=== PATIENT | male | born 1965 | race Caucasian/White ===

== ENCOUNTER 2020-03-04 11:00 | Inpatient (IN) | payer OTHER ==
[~2020-03-04] VITALS: Ht 175.3 cm; Wt 88.1 kg
[~2020-03-04 11:00] MED LIST: DOXYCYCL HYC100 MG PO
--- NOTE | 2020-03-04 11:00 | NUR ---
PT ARRIVES VIA EMS IN NO DISTRESS WITH REDNESS TO LLE.
[2020-03-04 12:00] LABS: HEMOGLOBIN 10.9 g/dl (14.0-18.0); MEAN CELL VOLUME 86.2 fL CALC (80.0-100.0); MEAN CORPUSCULAR HGB 31.3 pG CALC (26.0-32.0); MEAN CORPUSCULAR HGB CONC 36.3 g/dL CAL (32.0-36.0); NEUT# 8.75 thou/uL (1.82-7.42); RED BLOOD COUNT 3.48 mill/uL (4.70-6.10); RED CELL DISTRI WIDTH 12.8 % (11.5-15.5)
--- NOTE | 2020-03-04 12:00 | NUR ---
PT UPDATED ON POCC. PT TOLERATING IVF BOLUS AND ABT WELL. PT TAKING PO FLUIS. SKIN PWD
[2020-03-04 12:13] LABS: ALBUMIN 2.8 g/dL (3.2-5.0); ALKALINE PHOSPHATASE 58 u/l (38-126); ANION GAP 15 (6-22 (CALC)); BILIRUBIN, TOTAL 2.7 mg/dL (0.0-1.4); BUN 21 mg/dL (9-20); BUN/CREATININE RATIO 25 (12-20 (CALC)); CARBON DIOXIDE 21 mmol/l (22-30); CHLORIDE 96 mmol/l (95-108); CREATININE 0.8 mg/dL (0.7-1.3); ETHYL ALCOHOL 0 mg/dl (0-30); GFR > 60 ML/MIN (>=60 (CALC)); GFR FOR AFR.AMER. > 60 ML/MIN (>=60 (CALC)); LIPASE 34 u/l (23-300); POTASSIUM 4.2 mmol/l (3.5-5.1); SGOT/AST 29 u/l (17-59); SODIUM 128 mmol/l (137-146); TOTAL PROTEIN 6.5 g/dL (6.3-8.2)
--- NOTE | 2020-03-04 13:00 | NUR ---
OBTAINED 350 CC DARK TEA COLORED URINE. PT UP IN NO DISTRESS.
[2020-03-04 13:41] LABS: URINE BILIRUBIN - DIPSTICK NEGATIVE (NEGATIVE); URINE BLOOD DIPSTICK TRACE-INTACT (NEGATIVE); URINE COLOR YELLOW; URINE GLUCOSE - DIPSTICK NEGATIVE (NEGATIVE); URINE KETONE TRACE mg/dL (NEGATIVE); URINE LEUK ESTERASE NEGATIVE (NEGATIVE); URINE NITRITE - DIPSTICK NEGATIVE (Negative); URINE PH 5.5 (4.5-8.0); URINE PROTEIN - DIPSTICK NEGATIVE (NEG-TRACE); URINE SPECIFIC GRAVITY 1.025
[2020-03-04 13:46] LABS: BARBITURATES NEGATIVE (NEGATIVE); COCAINE NEGATIVE (NEGATIVE); METHADONE NEGATIVE (NEGATIVE); OXCYCODONE NEGATIVE (NEGATIVE); TETRAHYDROCANNABIONOL NEGATIVE (NEGATIVE); TRICYLIC ANTIDEPRESSANTS NEGATIVE (NEGATIVE)
--- NOTE | 2020-03-04 14:47 | NUR ---
REPEAT LACTIC DRAWN. PT IN NO DISTRESS, RESP EVEN AND UNLABORED, VSS. CONTINUES WITH TWO [facility] OFFICERS , OFFICERS MAINTAINING LT ANKLE CUFF TO BED. UPDATED ON ADMIT AND POC
--- NOTE | 2020-03-04 15:57 | NUR ---
PT TOLERATING IVF AND ABT WELL. PT HAS NO COMPLAINTS AT THIS TIME. VSS. UPDATED ON POC, CONTINUES WITH 2 [facility] GUARDS. PT URINATED 150CC CLEAR YELLOW URINE
--- NOTE | 2020-03-04 16:50 | NUR ---
PT UPDATED ON POC IN NO DISTRESS, PT STATES "I AM READY TO GET TO A [facility]". GUARDS AT BEDSIDE. VSS
--- NOTE | 2020-03-04 17:50 | NUR ---
TRANSPORTED TO [facility] VIA WITH MASK ON AND WRAPPED IN BLANKET. PT WITH WRIST AND ANKLE SHACKLES MAINTAINED BY 2 [facility] GUARDS AT SIDE. PT IN NO DISTRESS.
[2020-03-04 17:56] VITALS: BP 145/68
--- NOTE | 2020-03-04 17:56 | NUR ---
PT ARRIVED TO MED/SURG ROOM 283 IN STABLE CONDITION VIA WHEELCHAIR ACCOMPANIED BY LACEY,ELIZABETH AND X2 GUARDS;PT AMBULATED TO BEDSIDE WITH A STEADY GAIT AND LLE SHAKLED TO BED;WT AND VS OBTAINED;PT A&O X3,ORIENTED TO ROOM AND CALL LIGHT SYSTEM;PT REPORTS BLISTERED AREA TO LLE ACCOMPANIED WITH RASH;PT DENIES ANY CURRENT PAIN OR DISCOMFORTS,PAIN SCALE AND REPORTING EDUCATED;RESPIRATIONS EVEN AND UNLABORED ON RA,CLEAR LUNG SOUNDS WITH NON-PRODUCTIVE COUGH NOTED AT TIMES;ABDOMEN SOFT ON PALPATION AND ACTIVE IN ALL4 QUADRANTS,LAST BM 03/04/2020;WEAK PEDAL PULSES;EMS #18G TO LAC FLUSHED AND PATENT,SITE APPEARS HEALTHY;ALLERGY BAND APPLIED;ACCUCHECK OBTAINED RESULTING IN 221;ALL SAFETY PRECAUTIONS IN PLACE WITH BED IN THE LOWEST POSITION AND CALL LIGHT IN REACH;WILL CONTINUE TO MONITOR
--- NOTE | 2020-03-04 19:05 | NUR ---
REPORT RECEIVED FROM ANTHONY BUSTILLO. PT RESTING IN BED, NO S/S OF DISTRESS AT THIS TIME. SAFETY PRECAUTIONS IN PLACE. WILL CONTINUE TO MONITOR.
--- NOTE | 2020-03-04 22:36 | NUR ---
PT RETURNING TO BED FROM THE RESTROOM, GATE STEADY. RESPIRATIONS EVEN AND UNLABORED ON RA. LUNGS SOUND CLEAR DIMINISHED. PEDAL PULSES STRONG. PT DENIES ANY PAIN OR DICOMFORT AT THIS TIME. SAFETY PRECAUTIONS IN PLACE. 1 SIDDHARTHA AT BEDSIDE. WILL CONTINUE TO MONITOR.
--- NOTE | 2020-03-05 00:35 | NUR ---
PT RESTING IN BED. RESPIRATIONS EVEN AND UNLABORED. TRINITYDS AT BEDSIDE. EDUCATED GAURDS ON THE IMPORTANCE OF WEARING THEIR N95 MASK WHILE IN THE ROOM WITH THE PT. SAFETY PRECAUTIONS IN PLACE. WILL CONTIUNE TO MONITOR.
[2020-03-05 01:21] VITALS: BP 143/65
--- NOTE | 2020-03-05 03:53 | NUR ---
PT RESTING IN BED, NO S/S OF DISTRESS AT THIS TIME. 2 GAURDS AT BEDSIDE. SAFETY PRECAUTIONSIN PLACE. WILL CONTINUE TO MONITOR.
[2020-03-05 05:39] VITALS: BP 146/71
[2020-03-05 06:14] LABS: HEMATOCRIT 27.2 % (39.0-50.0); HEMOGLOBIN 9.7 g/dl (14.0-18.0); MEAN CELL VOLUME 86.9 fL CALC (80.0-100.0); MEAN CORPUSCULAR HGB CONC 35.7 g/dL CAL (32.0-36.0); RED BLOOD COUNT 3.13 mill/uL (4.70-6.10); RED CELL DISTRI WIDTH 12.8 % (11.5-15.5)
[2020-03-05 06:38] LABS: ANION GAP 9 (6-22 (CALC)); BUN 14 mg/dL (9-20); BUN/CREATININE RATIO 26 (12-20 (CALC)); CARBON DIOXIDE 22 mmol/l (22-30); CHLORIDE 105 mmol/l (95-108); CREATININE 0.6 mg/dL (0.7-1.3); GFR > 60 ML/MIN (>=60 (CALC)); GFR FOR AFR.AMER. > 60 ML/MIN (>=60 (CALC)); POTASSIUM 3.8 mmol/l (3.5-5.1); SODIUM 132 mmol/l (137-146)
--- NOTE | 2020-03-05 07:10 | NUR ---
REPORT RECEIVED FROM ELIZABETH MAYFIELD. PT RESTING IN SEMI FOWLERS WITH EYES CLOSED; AWAKENS TO VERBAL STIMULI; ALERT AND ORIENTED. DENIES PAIN. RESPIRATIONS EVEN AND UNLABORED ON ROOM AIR. RLE SHACKLED TO BED; 2 GUARDS AT BEDSIDE. LLE NOTED TO BE MILDLY RED WITH BLISTER TO BOTTOM OF FOOT. PT ON AIRBORNE/CONTACT PRECAUTIONS PENDING COVID TEST RESULTS. PLAN OF CARE REVIEWED. PT ENCOURAGED TO VERBALIZE CONCERNS. STATES UNDERSTANDING. SAFETY MEASURES IN PLACE. CALL LIGHT WITHIN REACH.
[2020-03-05 08:00] VITALS: BP 143/68
--- NOTE | 2020-03-05 09:09 | NUR ---
S: NANI GENTILE is a 54 M who presents with decubitis ulcer of left foot and cellulitis of left lower extremity. He has a history of diabetes. All medications in patient's chart were reviewed. O: VS: BP 143/68, P 78, RR 18,T 98.4 W 88.139 kg, HT 69 in, Scr=0.6, CrCl= 158 ml/min A: Blood culture is pending. P: Patient is on Zosyn 3.375 g IV Q6H. Vancomycin ordered for pharmacy to dose. Start Vancomycin 1g IV Q8H. Vancomycin trough is drawn before the 4th dose on 03/05/20 @1330. Vancomycin goal trough is between 10-15 mcg/ml. Pharmacy will follow and or advise on antibiotics use as needed.
[2020-03-05] MEDS ORDERED: METFORMIN HCL1000 MG PO (10:15)
[2020-03-05] MEDS ORDERED: LEVOTHYROXIN50 MC1 PO (10:16)
[2020-03-05] MEDS ORDERED: LASIX 40 MG TAB40 MG PO ×2 (10:16→10:36)
[2020-03-05] MEDS ORDERED: ATENOLOL XX (10:16)
[2020-03-05] MEDS ORDERED: LISINOPRIL20 MG PO (10:36)
[2020-03-05] MEDS ORDERED: K-TABS10 MEQ PO (10:50)
[2020-03-05] MEDS ORDERED: ATENOLOL25 MG PO (10:51)
[2020-03-05] MEDS ORDERED: LEVOTHYROXIN25 MC1 PO (10:51)
--- NOTE | 2020-03-05 12:34 | NUR ---
MED REC RECEIVED FROM [facility]; MED REC UPDATED. PT REQUESTING SHOWER.
--- NOTE | 2020-03-05 13:36 | NUR ---
PRASHANT TROUGH OBTAINED AND SENT TO LAB. PT C/O INCREASED PAIN AND REDNESS TO LLE.
--- NOTE | 2020-03-05 14:25 | NUR ---
PT TRANSPORTED TO ULTRASOUND FOR LLE VIA WHEELCHAIR WITH ONE GUARD AND RLE SHACKLED TO CHAIR. MASK PROVIDED DUE TO ISOLATION PRECAUTIONS.
--- NOTE | 2020-03-05 14:50 | NUR ---
PT BACK TO ROOM. LABS DRAWN AND SENT TO LAB.
--- NOTE | 2020-03-05 15:41 | NUR ---
VANCO TROUGH 9; DOSE INCREASED. VANCO 1250MG INFUSING AT THIS TIME. NEW IV SITE TO LFA APPEARS HEALTHY AND FLUSHES; EMS SITE D/C'D.
[2020-03-05 16:00] VITALS: BP 152/75
--- NOTE | 2020-03-05 16:11 | NUR ---
S: NANI GENTILE is a 54 M who presents with cellulitis. He has a history of diabetes, hypertension, and thyroid issues. All medications in patient's chart were reviewed. O: VS: BP 152/75 mmHg, P 70 bpm, RR 18 breaths/min, T 98 F W 88.139 kg, HT 69 in, Scr 0.6 mg/dl A: Blood culture is pending. P: First trough came back at 9 mcg/ml. Increase vancomycin dose to 1250mg IV Q8H @ 0030, 0800, and 1600. Vancomycin trough is drawn before the 4th dose on 03/06/20 @ 1530. Vancomycin goal trough is between 10-15 mcg/ml. Pharmacy will follow and or advise on antibiotics use as needed.
--- NOTE | 2020-03-05 18:04 | NUR ---
FISH ALLERGY ADDED TO ALLERGY LIST; NEW DINNER TRAY PROVIDED. 2 GUARDS REMAIN AT BEDSIDE.
--- NOTE | 2020-03-05 19:04 | NUR ---
COVID-19 RESULTS NEGATIVE PER LAB
--- NOTE | 2020-03-05 20:17 | NUR ---
INFORMED OF COVID RESULTS
--- NOTE | 2020-03-05 21:00 | NUR ---
PHYSICAL ASSEMENT COMPLETE. VS TAKEN BY DRILL PRESS HAND ASSESSED. PLAN OF CARE REVIEWED W/ PT, DENIES QUESTIONS, VERBALIZES UNDERSTANDING. DENIES NEEDS AT THIS TIME. CALL RAMIREZ WITHIN REACH, AGREES TO CALL PRN. BED LOCKED IN LOW POSITION W/ BEDRAILS UP X2, ITEMS WITHIN REACH. PT FROM [facility], COsX2 PRESENT AT BEDSIDE, PT IS SHACKLED TO BED.
--- NOTE | 2020-03-06 00:51 | NUR ---
PT APPEARS TO BE SLEEPING COMFORTABLY. NO APPARENT DISTRESS. RESPIRATIONS REGULAR AND UNLABORED.CALL RAMIREZ REMAINS WITHIN REACH. BED REMAINS LOCKED IN LOW POSITION W/ BEDRAILS UP X2, ITEMS REMAIN WITHIN REACH.
[2020-03-06 04:22] VITALS: BP 151/80
[2020-03-06 04:40] LABS: HEMATOCRIT 27.2 % (39.0-50.0); HEMOGLOBIN 9.5 g/dl (14.0-18.0); IMMATURE GRANULOCYTES 0.2 % (0.0-5.0); MEAN CELL VOLUME 86.6 fL CALC (80.0-100.0); MEAN CORPUSCULAR HGB 30.3 pG CALC (26.0-32.0); MEAN CORPUSCULAR HGB CONC 34.9 g/dL CAL (32.0-36.0); NEUT# 2.85 thou/uL (1.82-7.42); RED BLOOD COUNT 3.14 mill/uL (4.70-6.10); RED CELL DISTRI WIDTH 12.6 % (11.5-15.5)
[2020-03-06 05:05] LABS: ALKALINE PHOSPHATASE 48 u/l (38-126); ANION GAP 8 (6-22 (CALC)); BUN 8 mg/dL (9-20); BUN/CREATININE RATIO 15 (12-20 (CALC)); CARBON DIOXIDE 23 mmol/l (22-30); CHLORIDE 105 mmol/l (95-108); CREATININE 0.5 mg/dL (0.7-1.3); GFR > 60 ML/MIN (>=60 (CALC)); GFR FOR AFR.AMER. > 60 ML/MIN (>=60 (CALC)); POTASSIUM 3.3 mmol/l (3.5-5.1); SGOT/AST 38 u/l (17-59); SODIUM 134 mmol/l (137-146); TOTAL PROTEIN 5.5 g/dL (6.3-8.2)
[2020-03-06 05:08] LABS: ALBUMIN 2.2 g/dL (3.2-5.0); BILIRUBIN, TOTAL 1.5 mg/dL (0.0-1.4)
--- NOTE | 2020-03-06 05:39 | NUR ---
VS TAKEN BY ENGINEERING MECHANIC @ 4375 ASSESSED. PHYSICAL ASSESMENT REMAINS UNCHANGED. PT RESTING IN BED, APPEARS COMFORTABLE. DENIES PAIN, DENIES NEEDS @ THIS TIME. BED REMAINS LOCKED IN LOW POSITION W/ BEDRAILS UP X2, ITEMS REMAIN WITHIN REACH. CALL RAMIREZ REMAINS WITHIN REACH, AGREES TO CALL PRN.
--- NOTE | 2020-03-06 07:20 | NUR ---
CHANGE OF SHIFT REPORT RECEIVED FROM ELIZABETH TSAI. PT IN SEMI-BRITTON POSITION. CALL LIGHT WITHIN EASY REACH. PT IS ABLE TO MAKE NEEDS KNOWN.
--- NOTE | 2020-03-06 12:00 | NUR ---
PT RESTING COMFORTABLY. PT DENIES ANY NEW CONCERNS. PT ADVISED TO NOTIFY TEST DEPARTMENT HELPER WHEN HE HAS A STOOL. SPECIMEN HAT PLACED ON TOILET. CALL LIGHT WITHIN EASY REACH
[2020-03-06 13:20] LABS: ACT PARTIAL THROMBO TIME 36.9 SECONDS (20.0-32.5); INTERNATIONAL NORMALIZED RATIO 1.2 RATIO (0.7-1.3); PROTHROMBIN TIME 12.2 SECONDS (9.0-12.5)
[2020-03-06 15:45] VITALS: BP 147/72
--- NOTE | 2020-03-06 16:00 | NUR ---
PT IN ROOM. PT HAD BM X 2 TODAY. EDUCATION PROVIDED ON ANTIBIOTIC THERAPY AND VANCO TROUGH. EDUCATION PROVIDED ON SOLUMEDROL. PT VERBALIZED UNDERSTANDING. FERMENTER OPERATOR WILL CONTINUE TO MONITOR
[2020-03-06 19:30] VITALS: BP 149/72
--- NOTE | 2020-03-06 20:30 | NUR ---
PHYSICAL ASSEMENT COMPLETE. VS TAKEN BY MELE @ 1910 ASSESSED. PLAN OF CARE REVIEWED W/ PT, DENIES QUESTIONS, VERBALIZES UNDERSTANDING. DENIES NEEDS AT THIS TIME. CALL RAMIREZ WITHIN REACH, AGREES TO CALL PRN. BED LOCKED IN LOW POSITION W/ BEDRAILS UP X2, ITEMS WITHIN REACH. PT IS INMATE @ [facility], SHACKLED TO BED AND COsX2 PRESENT AT BEDSIDE.
--- NOTE | 2020-03-06 21:15 | NUR ---
FINGER STICK GLUCOSE CHECK CRITICALLY HIGH, SERUM RECHECK ORDERED. RESULTS 469mg/dl. DR. CARTER MADE AWARE. NEW ORDERS RECEIVED. SEE JAN.
--- NOTE | 2020-03-07 00:45 | NUR ---
REPEAT GLUCOSE @ 2355 IS 446mg/dl. DR CARTER MADE AWARE @ 0045 AND ORDERS RECEIVED.
[2020-03-07 03:20] VITALS: BP 139/75
--- NOTE | 2020-03-07 04:33 | NUR ---
VS TAKEN BY SUPERVISOR PHOTOENGRAVING @ 0320 ASSESSED. PHYSICAL ASSESMENT REMAINS UNCHANGED. PT RESTING IN BED, APPEARS COMFORTABLE. DENIES PAIN, DENIES NEEDS @ THIS TIME. BED REMAINS LOCKED IN LOW POSITION W/ BEDRAILS UP X2, ITEMS REMAIN WITHIN REACH. CALL RAMIREZ REMAINS WITHIN REACH, AGREES TO CALL PRN.
[2020-03-07 04:38] LABS: HEMATOCRIT 28.1 % (39.0-50.0); HEMOGLOBIN 10.1 g/dl (14.0-18.0); MEAN CELL VOLUME 85.4 fL CALC (80.0-100.0); MEAN CORPUSCULAR HGB 30.7 pG CALC (26.0-32.0); MEAN CORPUSCULAR HGB CONC 35.9 g/dL CAL (32.0-36.0); RED BLOOD COUNT 3.29 mill/uL (4.70-6.10); RED CELL DISTRI WIDTH 12.4 % (11.5-15.5)
[2020-03-07 04:51] LABS: ALBUMIN 2.4 g/dL (3.2-5.0); ALKALINE PHOSPHATASE 71 u/l (38-126); ANION GAP 10 (6-22 (CALC)); BILIRUBIN, TOTAL 1.1 mg/dL (0.0-1.4); BUN 9 mg/dL (9-20); BUN/CREATININE RATIO 17 (12-20 (CALC)); CARBON DIOXIDE 23 mmol/l (22-30); CHLORIDE 106 mmol/l (95-108); CREATININE 0.5 mg/dL (0.7-1.3); GFR > 60 ML/MIN (>=60 (CALC)); GFR FOR AFR.AMER. > 60 ML/MIN (>=60 (CALC)); POTASSIUM 3.7 mmol/l (3.5-5.1); SGOT/AST 33 u/l (17-59); SODIUM 135 mmol/l (137-146); TOTAL PROTEIN 5.8 g/dL (6.3-8.2)
--- NOTE | 2020-03-07 07:15 | NUR ---
CHANGE OF SHIFT REPORT RECEIVED FROM ELIZABETH THOMAS. PT IS IN THE SHOWER. PT DENIES ANY CONCERNS AT THIS TIME. PAPER GUILLOTINE OPERATOR WILL CONTINUE TO MONITOR
--- NOTE | 2020-03-07 12:00 | NUR ---
PT STABLE. NO S/S OF DISTRESS. ANTIBIOTICS ADMINISTERED ORDERED. INSTRUCTOR BALLROOM DANCING WILL CONTINUE TO MONITOR
--- NOTE | 2020-03-07 12:07 | NUR ---
VANCOMYCIN ORDERED FOR PHARMACY TO DOSE. PT DOSE WAS CHANGED TO 1250MG IV Q8H ON 03/05. FIRST TROUGH DRAWN 30 MIN PRIOR TO 4TH DOSE ON 03/06 @ 1530. TROUGH = 13 MCG/ML. GOAL TROUGH = 10-15 MCG/ML. CONTINUE AT CURRENT DOSE OF 1250MG IV Q8H AND DRAW NEXT TROUGH ON 03/07 @ 1530.
[2020-03-07 15:30] VITALS: BP 132/72
--- NOTE | 2020-03-07 15:32 | NUR ---
PT STABLE. NO S/S OF DISTRESS. VANCO TROUGH PENDING. CALL LIGHT WITHIN EASYS REACH, BED IN LOWEST POSITION.
[2020-03-07 18:50] VITALS: BP 141/71
--- NOTE | 2020-03-07 19:00 | NUR ---
REPORT RECEIVED BY Rudi GAMBINO RN, CARE OF PT TAKEN OVER AT THIS TIME.
--- NOTE | 2020-03-07 20:15 | NUR ---
PHYSICAL ASSEMENT COMPLETE. VS TAKEN BY MELE @ 4679 ASSESSED. PLAN OF CARE REVIEWED W/ PT, DENIES QUESTIONS, VERBALIZES UNDERSTANDING. DENIES NEEDS AT THIS TIME. CALL RAMIREZ WITHIN REACH, AGREES TO CALL PRN. BED LOCKED IN LOW POSITION W/ BEDRAILS UP X2, ITEMS WITHIN REACH.
[2020-03-08 03:55] VITALS: BP 161/76
--- NOTE | 2020-03-08 05:18 | NUR ---
VS TAKEN BY GRADER GREEN MEAT @ 0333 ASSESSED. PHYSICAL ASSESMENT REMAINS UNCHANGED. PT RESTING IN BED, APPEARS COMFORTABLE. DENIES PAIN, DENIES NEEDS @ THIS TIME. BED REMAINS LOCKED IN LOW POSITION W/ BEDRAILS UP X2, ITEMS REMAIN WITHIN REACH. CALL RAMIREZ REMAINS WITHIN REACH, AGREES TO CALL PRN.
[2020-03-08 05:19] LABS: HEMATOCRIT 27.7 % (39.0-50.0); HEMOGLOBIN 9.8 g/dl (14.0-18.0); IMMATURE GRANULOCYTES 0.5 % (0.0-5.0); MEAN CORPUSCULAR HGB 30.4 pG CALC (26.0-32.0); MEAN CORPUSCULAR HGB CONC 35.4 g/dL CAL (32.0-36.0); NEUT# 7.46 thou/uL (1.82-7.42); RED BLOOD COUNT 3.22 mill/uL (4.70-6.10); RED CELL DISTRI WIDTH 12.9 % (11.5-15.5)
[2020-03-08 05:29] LABS: ANION GAP 9 (6-22 (CALC)); BUN 11 mg/dL (9-20); BUN/CREATININE RATIO 21 (12-20 (CALC)); CARBON DIOXIDE 24 mmol/l (22-30); CHLORIDE 107 mmol/l (95-108); CREATININE 0.5 mg/dL (0.7-1.3); GFR > 60 ML/MIN (>=60 (CALC)); GFR FOR AFR.AMER. > 60 ML/MIN (>=60 (CALC)); POTASSIUM 3.9 mmol/l (3.5-5.1); SODIUM 135 mmol/l (137-146)
[2020-03-08 08:00] VITALS: BP 160/73
[2020-03-08 08:57] VITALS: BP 160/73
--- NOTE | 2020-03-08 09:00 | NUR ---
PT IS ALERT AND ORIENTED X 3. LUNGS CLEAR, RA. LEFT LEG WITH 2+ EDEMA, SKIN WITH WHAT APPEARS TO BE RASH. BAND AID APPLIED TO LEFT FOOT WHERE BLISTER SEEN, MINIMAL DRAINAGE. ALPA HOSE APPLIED PER SWELLING. PT WITH GUARDS X 2 AT BEDSIDE.
[2020-03-08] MEDS ORDERED: DOXYCYCL HYC100 MG PO (10:30)
[2020-03-08] MEDS ORDERED: JANUVIA100 MG PO (10:30)
[2020-03-08] MEDS ORDERED: PREDNISONE20 MG PO (10:30)
--- NOTE | 2020-03-08 11:30 | NUR ---
PT HAS BEEN DISCHARGED BACK TO [facility]. PT VERBALIZED UNDERSTANDING OF DC INSTRUCTIONS, AWARE OF NEW RXs AND PLAN OF CARE. PT AMBULATORY TO LOBBY, REFUSED WHEELCHAIR, GAIT SEEN STEADY.
--- NOTE | 2020-03-08 17:18 | NUR ---
Vancomycin ordered for pharmacy to dose. PT is a 54 yrs old M who presented with cellulitis of left lower extremity. Pt was started on Vancomycin 1,250 mg IV Q8H with goal trough of 10-15 mcg/ml. Trough on 03/07/20 at 1530: 17mcg/mL. Wt: 90kg, Ht: 72 in, Scr: 0.6, CrCl: >120mL/min Change Vancomycin dose to 1,000 mg IV Q8H on 03/08/20 at 0800. Draw trough 30 minutes prior to 4th dose on 03/09/20 at 0730. Pharmacy will continue to follow.
== END 2020-03-08 11:45 | DRG 602 ==
LOC: ED 11:00 → ED-I 14:23 → ED 14:52 → ED-I 14:53 → MS2 14:53
PROVIDERS: Nurse Practitioner Family; ADMIT Internal Medicine; ATTEND Internal Medicine
DX: L03.116 Cellulitis of left lower limb (principal); M31.1 Thrombotic microangiopathy; E87.1 Hypo-osmolality and hyponatremia; L89.890 Pressure ulcer of other site, unstageable; E11.9 Type 2 diabetes mellitus without complications; I10 Essential (primary) hypertension; E03.9 Hypothyroidism, unspecified; E87.6 Hypokalemia; Z79.84 Long term (current) use of oral hypoglycemic drugs; Z20.828 Contact with and (suspected) exposure to other viral communicable diseases
CPT/HCPCS: J3370

== ENCOUNTER 2020-07-23 09:18 | Inpatient (IN) | payer OTHER ==
[~2020-07-23] VITALS: Ht 175.3 cm; Wt 95.8 kg
[~2020-07-23 09:18] MED LIST changes: +ATENOLOL XX; +ATENOLOL25 MG PO; +JANUVIA100 MG PO; +K-TABS10 MEQ PO; +LASIX 40 MG TAB40 MG PO; +LEVOTHYROXIN25 MC1 PO; +LEVOTHYROXIN50 MC1 PO; +LISINOPRIL20 MG PO; +METFORMIN HCL1000 MG PO; +PREDNISONE20 MG PO
--- NOTE | 2020-07-23 09:20 | NUR ---
PATIENT TO ROOM FOR BEDSIDE TRIAGE.
--- NOTE | 2020-07-23 09:20 | NUR ---
PATIENT TO ROOM WITH [facility] GUARDS AND PHYSICIAN NOTIFIED OF PATIENT STATUS
--- NOTE | 2020-07-23 09:57 | NUR ---
PT PRESENTS WITH A 4CM X 3 CM ELEVATED ULCER UNDER THE UPPER PART OF LEFT FOOT. SOME EDEMA AND REDNESS IS DETECTED. ON THE DORSAL PART OF FOOT THERE IS A RED STREAK. PT STATES EXPERIANCING FEVER LAST NIGHT. AFIBRILE NOW AND STATES NOT TAKING ANY MEDS FOR THE FEVER. WOUND HOT TO THE TOUCH. AOX4. STATES FEELING LIGHT HEADED AND DIZZY YESTERDAY WHICH HAS THEN RESOLVED. WILL CONTINUE TO MONITOR. PAIN 07/05
[2020-07-23 10:05] LABS: HEMATOCRIT 30.3 % (39.0-50.0); HEMOGLOBIN 10.3 g/dl (14.0-18.0); IMMATURE GRANULOCYTES 0.4 % (0.0-5.0); MEAN CELL VOLUME 90.2 fL CALC (80.0-100.0); MEAN CORPUSCULAR HGB 30.7 pG CALC (26.0-32.0); NEUT# 7.41 thou/uL (1.82-7.42); RED BLOOD COUNT 3.36 mill/uL (4.70-6.10); RED CELL DISTRI WIDTH 14.2 % (11.5-15.5)
[2020-07-23 10:20] LABS: ALKALINE PHOSPHATASE 70 u/l (38-126); ANION GAP 13 (6-22 (CALC)); BUN 11 mg/dL (9-20); BUN/CREATININE RATIO 17 (12-20 (CALC)); CARBON DIOXIDE 23 mmol/l (22-30); CHLORIDE 105 mmol/l (95-108); CREATININE 0.7 mg/dL (0.7-1.3); GFR > 60 ML/MIN (>=60 (CALC)); GFR FOR AFR.AMER. > 60 ML/MIN (>=60 (CALC)); SGOT/AST 30 u/l (17-59); SODIUM 136 mmol/l (137-146); TOTAL PROTEIN 6.6 g/dL (6.3-8.2)
[2020-07-23 10:22] LABS: ALBUMIN 3.2 g/dL (3.2-5.0); BILIRUBIN, TOTAL 3.2 mg/dL (0.0-1.4)
--- NOTE | 2020-07-23 10:30 | NUR ---
PT RESTING ON STRETCHER WITH ANTIBIOTICS AND FLUIDS FLOWING INTO PATENT IV. DENIES ANY NEEDS
--- NOTE | 2020-07-23 11:30 | NUR ---
PT RESTING AND ANOTHER LITER OF FLUID IS HANGED. ANTIBIOTICS CONTINUE TO BE INFUSING INTO IV. DENIES ANY NEEDS AT THIS TIME. OFFICERS AT BEDSIDE
--- NOTE | 2020-07-23 13:13 | NUR ---
CALLED BECAUSE OF INCREASED LACTIC LEVEL TO SEEK TREATMENT BEFORE HAND OFF REPORT VERBAL ORDERS RECIEVED
--- NOTE | 2020-07-23 13:17 | NUR ---
ATTEMPTED TO GIVE REPORT AND IT WAS SAID THAT NURSE IS BUSY AND WILL CALL BACK WHEN AVAILIABLE
--- NOTE | 2020-07-23 13:30 | NUR ---
GAVE REPORT TO YVETTE
--- NOTE | 2020-07-23 13:55 | NUR ---
TRANSPORTED PT TO [facility] SURG STABLE AND IN NO DISTRESS WITH ESCORT OF TWO OFFICERS Admission Note Report Given to: YVETTE Transported by: X Wheelchair Stretcher Transported with: X Nurse Transporter X Patent IV O2 Management And Budget Analyst Location: ICU X MS2
--- NOTE | 2020-07-23 14:06 | NUR ---
PT ASSESSMENT IS COMPLETED: IV SITE IS FREE FROM REDNESS OR EDEMA. HR IS REG,PULSES ARE STRONG X4, ABD IS SOFT WITH ACTIVE BS. BREATH SOUNDS ARE CLEAR,BILATERALLY., PT HAS A LARGE ULCER ON THE BOTTOM OF LEFT FOOT. NO OOZING NOTED. 2 GUARDS AT BEDSIDE.
[2020-07-23 14:14] VITALS: BP 124/61
[2020-07-23 14:33] LABS: URINE BILIRUBIN - DIPSTICK NEGATIVE (NEGATIVE); URINE BLOOD DIPSTICK NEGATIVE (NEGATIVE); URINE COLOR YELLOW; URINE GLUCOSE - DIPSTICK NEGATIVE (NEGATIVE); URINE KETONE NEGATIVE (NEGATIVE); URINE LEUK ESTERASE NEGATIVE (NEGATIVE); URINE NITRITE - DIPSTICK NEGATIVE (Negative); URINE PH 5.5 (4.5-8.0); URINE PROTEIN - DIPSTICK NEGATIVE (NEG-TRACE); URINE SPECIFIC GRAVITY 1.015
--- NOTE | 2020-07-23 15:30 | NUR ---
CALLED RADHA JAMES IN OR RE: COVID RESULT POSITIVE.
--- NOTE | 2020-07-23 15:53 | NUR ---
S: NANI GENTILE is a 55 M who presents with Cellulitis. He has a history of diabetes, hypertesnion, and thyroid problems. All medications in patient's chart were reviewed. O: VS: BP 124/61 mmHg, P 102 bpm, RR 20 breaths/minute,T 97.5 F W 78.471 kg, HT 175.26 cm, Scr= 0.7 mg/dL, CrCl= 129 ml/min A: Blood culture is pending. P: Patient is on Cefazolin 1g IV Q8H. Vancomycin ordered for pharmacy to dose. Start Vancomycin 1250 mg IV Q12H. Vancomycin trough is drawn before the 4th dose on 07/25/2020 0830. Vancomycin goal trough is between 10-15 mcg/ml. Pharmacy will follow and or advise on antibiotics use as needed.
--- NOTE | 2020-07-23 15:57 | NUR ---
PLACED A CALL TO DR BERMUDEZ RE: COVID RESULT. POSITIVE
--- NOTE | 2020-07-23 15:59 | NUR ---
CALLED [facility], THEY WILL FAX US PTS MED LIST
--- NOTE | 2020-07-23 17:00 | NUR ---
PT IS RELAXING IN BED 2 GUARDS PRESENT AT BEDSIDE.
--- NOTE | 2020-07-23 17:30 | NUR ---
CONSENT SIGNED FOR THE I&D TOMORROW/.
[2020-07-23 19:10] VITALS: BP 165/72
--- NOTE | 2020-07-23 20:15 | NUR ---
PHYSICAL ASSESMENT COMPLETE. PT RESTING IN BED. SHACKLE TO RLE. 2 GUARDS IN ROOM WITH PATIENT. SCHEDULED MEDICATION ADMINISTERED, PRN TYLENOL ADMINISTERED FOR LOW GRADE TEMP, NS 500ML BOLUS INITIATED, IVF RATE INCREASED TO 125ML/H. SEE E-MAR. PLAN OF CARE REVIEWED, PT VERBALIZES UNDERSTANDING, DENIES QUESTIONS. DENIES FURTHER NEEDS AT THIS TIME. CALL RAMIREZ WITHIN REACH, AGREES TO CALL PRN.
--- NOTE | 2020-07-23 20:45 | NUR ---
FINGERSTICK GLUCOSE 162, DIABETIC HS SNACK PROVIDED.
[2020-07-24] VITALS (11 sets, daily range): BP systolic 107–158; BP diastolic 57–77
--- NOTE | 2020-07-24 00:46 | NUR ---
PT SLEEPING, APPEARS COMFORTABLE AND IN NO DISTRESS, RESPIRATIONS REGULAR AND UNLABORED, CALL RAMIREZ REMAON WITHIN REACH.
--- NOTE | 2020-07-24 01:02 | NUR ---
LACTIC ACID WNL
--- NOTE | 2020-07-24 04:18 | NUR ---
ALLERGIES CONFIRMED AND ALLERGY BAND PLACED, PT SET UP TO BATHE AND NEW GOWN PROVIDED. ASSISTED BY Opal WATERMAN CNA. GUARDS X2 REMAIN AT BEDSIDE.
--- NOTE | 2020-07-24 04:27 | NUR ---
SOIL FIELD TECHNICIAN IN ROOM DRAWING AM LABS
[2020-07-24 04:45] LABS: HEMATOCRIT 28.4 % (39.0-50.0); HEMOGLOBIN 9.8 g/dl (14.0-18.0); IMMATURE GRANULOCYTES 0.3 % (0.0-5.0); MEAN CELL VOLUME 91.6 fL CALC (80.0-100.0); MEAN CORPUSCULAR HGB 31.6 pG CALC (26.0-32.0); MEAN CORPUSCULAR HGB CONC 34.5 g/dL CAL (32.0-36.0); NEUT# 7.4 thou/uL (1.82-7.42); RED BLOOD COUNT 3.1 mill/uL (4.70-6.10); RED CELL DISTRI WIDTH 14.6 % (11.5-15.5)
[2020-07-24 05:06] LABS: ALBUMIN 2.6 g/dL (3.2-5.0); ALKALINE PHOSPHATASE 64 u/l (38-126); ANION GAP 9 (6-22 (CALC)); BUN 7 mg/dL (9-20); BUN/CREATININE RATIO 14 (12-20 (CALC)); CARBON DIOXIDE 22 mmol/l (22-30); CHLORIDE 111 mmol/l (95-108); CREATININE 0.5 mg/dL (0.7-1.3); GFR > 60 ML/MIN (>=60 (CALC)); GFR FOR AFR.AMER. > 60 ML/MIN (>=60 (CALC)); POTASSIUM 3.8 mmol/l (3.5-5.1); SGOT/AST 25 u/l (17-59); SODIUM 138 mmol/l (137-146); TOTAL PROTEIN 5.8 g/dL (6.3-8.2)
[2020-07-24 05:07] LABS: BILIRUBIN, TOTAL 1.9 mg/dL (0.0-1.4)
[2020-07-24] MEDS ORDERED: NOVOLIN N100 UNIT/1 SC (07:21)
[2020-07-24] MEDS ORDERED: NOVOLOG100 UNIT/M SC (07:22)
[2020-07-24] MEDS ORDERED: ATENOLOL25 MG PO (07:23)
[2020-07-24] MEDS ORDERED: GLIPIZIDE10 MG PO (07:24)
[2020-07-24] MEDS ORDERED: METFORMIN HCL1000 MG PO (07:24)
[2020-07-24] MEDS ORDERED: LASIX40 MG PO (07:24)
[2020-07-24] MEDS ORDERED: LISINOPRIL20 MG PO (07:25)
--- NOTE | 2020-07-24 07:40 | NUR ---
ASSESSMENT IS COMPLETED: IV SITE IS FREE FROM REDNESS OR EDEMA. HR IS REG,PULSES ARE STRONG X4, ABD IS SOFT WITH ACTIVE BS. BREATH SOUNDS ARE CLEAR, BILATERALLY, NO C/O SOB. PT HAD A BLANKET ON HIS FACE WHEN CHECKING TEMP. LEFT FOOT HAS SOME SWELLING NOTED. CONTINUE TO OSBERVE AND MONITOR.
--- NOTE | 2020-07-24 08:00 | NUR ---
PT TAKEN TO OR VIA STRETCHER ACCOMPANIED BY STAFF, IV SITE IS FREE FROM REDNESS OR EDEMA. 2 GUARDS PRESENT IN THE ROOM.
--- NOTE | 2020-07-24 09:25 | NUR ---
PT RETURNED FROM FROM OR. VIA STRETCHER ACCOMPANIED BY STAFF. AND 2 GUARDS PRESENT. IV SITE REMAINS INTACT. CONTINUE TO OSBERVE AND MONITOR,
--- NOTE | 2020-07-24 12:00 | NUR ---
PT IS RELAXING IN BED 2 GUARDS AT BEDSIDE. NO DISTRESS NOTED IV SITE IS FREE FROM REDNESS OR EDEMA.
--- NOTE | 2020-07-24 16:30 | NUR ---
PT IS RELAXING IN BED WITH NO DISTRESS NOTED. IV SITE IS FREE FROM REDNESS OR EDEMA. 2 GUARDS PRESENT INT HE ROOM.
--- NOTE | 2020-07-24 19:00 | NUR ---
REPORT RECEIVED FROM Alecia GRANT LPN, CARE OF PT ASSUMED AT THIS TIME.
--- NOTE | 2020-07-24 20:45 | NUR ---
PHYSICAL ASSESMENT COMPLETE. PT RESTING IN BED. RESPIRATIONS REGULAR AND UNLABORED. NO APPARENT DISTRESS. RLE SHACKLED TO BED. X2 CORRECTIONAL OFFICERS AT BEDSIDE. POST-OP DRESSING TO LLE CLEAN, DRY, INTACT. C/M/T/S WNL. SEE E-MAR FOR ADMINISTRATION OF SCHEDULED AND PRN MEDICATION(S). PLAN OF CARE REVIEWED, PT VERBALIZES UNDERSTANDING AND DENIES QUESTIONS. PT ABLE TO MAKE NEEDS KNOWN, DENIES NEEDS AT THIS TIME. CALL ASHLEY KENNY, AGREES TO CALL PRN.
--- NOTE | 2020-07-24 23:25 | NUR ---
DRESSING TO LLE SURGICAL SITE CHANGED AT THIS TIME PRESCRIBED BY DR. BERMUDEZ. PREVIOUS DRESSING REMOVED, MINIMAL SANGUINOUS DRAINAGE NOTED TO REMOVED DRESSING. NO ACTIVE DRAINAGE TO SURGICAL WOUND. WOUBD BED MOIST. FREE FROM SIGN OF INFECTION. FLUFFED, NORMAL SALINE MOISTENED, 4X4 GAUZE GENTLY PACKED INTO WOUND. STACK OF 4X4 AND ABD PADS SECURED OVER TOP WITH KORIN WRAP AROUBD FOOT AND ANKLE.
--- NOTE | 2020-07-25 00:40 | NUR ---
PT LAYING IN BED, APPEARS TO BE SLEEPING COMFORTABLY, NO APPARENT DISTRESS, RESPIRATIONS REGULAR AND UNLABORED. CALL RAMIREZ REMAINS WITHIN REACH.
[2020-07-25 04:48] VITALS: BP 134/68
[2020-07-25 05:54] LABS: HEMATOCRIT 22.9 % (39.0-50.0); IMMATURE GRANULOCYTES 0.3 % (0.0-5.0); MEAN CELL VOLUME 93.1 fL CALC (80.0-100.0); MEAN CORPUSCULAR HGB 31.7 pG CALC (26.0-32.0); MEAN CORPUSCULAR HGB CONC 34.1 g/dL CAL (32.0-36.0); NEUT# 2.7 thou/uL (1.82-7.42); RED BLOOD COUNT 2.46 mill/uL (4.70-6.10); RED CELL DISTRI WIDTH 14.6 % (11.5-15.5)
[2020-07-25 06:21] LABS: ANION GAP 9 (6-22 (CALC)); BUN 14 mg/dL (9-20); BUN/CREATININE RATIO 19 (12-20 (CALC)); CARBON DIOXIDE 20 mmol/l (22-30); CHLORIDE 112 mmol/l (95-108); CREATININE 0.7 mg/dL (0.7-1.3); GFR > 60 ML/MIN (>=60 (CALC)); GFR FOR AFR.AMER. > 60 ML/MIN (>=60 (CALC)); SODIUM 137 mmol/l (137-146)
[2020-07-25 06:31] LABS: HEMOGLOBIN 7.8 g/dl (14.0-18.0)
[2020-07-25 07:50] VITALS: BP 157/81
--- NOTE | 2020-07-25 07:50 | NUR ---
ASSESSMENT IS COMPLETED: IV SITE IS FREE FROM REDNESS OR EDEMA. HR IS REG, PULSES ARE STRONG X4,ABD IS SOFT WITH ACTIVE BS.BREATH SOUNDS ARE CLEAR BILATERALLY. DRESSING ON LEFT FOOT HAS SOME DRAINAGE NOTED. ON THE INNER DRESSING. 2 GUARDS AT BEDSIDE. CONTINUE TO OBSERVE ANS MONITOR.
--- NOTE | 2020-07-25 11:20 | NUR ---
PT IS RECEIVING VANCOMYCIN 1250MG IV BID FOR CELLULITIS. TODAYS TROUGH WAS 11 MCG/ML. CONTINUE AT SAME DOSE. WILL RECHECK TROUGH 07/27 @ 0830. PHARMACY WILL CONTINUE TO FOLLOW.
[2020-07-25 11:46] LABS: HEMATOCRIT 24.1 % (39.0-50.0); HEMOGLOBIN 8.1 g/dl (14.0-18.0); IMMATURE GRANULOCYTES 0.3 % (0.0-5.0); MEAN CELL VOLUME 91.3 fL CALC (80.0-100.0); MEAN CORPUSCULAR HGB 30.7 pG CALC (26.0-32.0); MEAN CORPUSCULAR HGB CONC 33.6 g/dL CAL (32.0-36.0); NEUT# 2.65 thou/uL (1.82-7.42); RED BLOOD COUNT 2.64 mill/uL (4.70-6.10); RED CELL DISTRI WIDTH 14.6 % (11.5-15.5)
--- NOTE | 2020-07-25 12:15 | NUR ---
PT IS RELAXING IN BED WITH NO DISTRESS NOTED. IV SITE IS FREE FROM REDNESS OR EDEMA.
--- NOTE | 2020-07-25 13:20 | NUR ---
DRESSING REMOVED ON LEFT FOOT. HAS MODERATE AMOUNT OF DRAINAGE NOTED. USING CLEAN TECHNIQUE, REPLACED WITH "FLUFF" MOIST , COVERED WITH DRY 4X4 AND ABD PAD. SECURED WITH KERLIZ AND AN KORIN WRAP DRESSING. PT TOLERATED WELL. MEASURES 1IN WITH 1/2 INCH DEPTH. SKIN REMAINS PINK. CONITNUE TO OBSERVE AND MONITOR.
--- NOTE | 2020-07-25 14:25 | NUR ---
RECEIVED A CALL FROM [facility] ) INQUIRED ABOUT PT. INFORMED OF THE ABT AND WOUND CS RESULT. WAITING ON THE SENSITIVITY. VERBALIZED UNDERSTANDING
[2020-07-25 15:00] VITALS: BP 146/75
--- NOTE | 2020-07-25 16:00 | NUR ---
PT HAS BEEN RELAXING IN BED WIHT NO DISTRESS NOTED. IV SITE IS FREE FROM REDNESS OR EDEMA.
[2020-07-25 19:00] VITALS: BP 162/81
--- NOTE | 2020-07-25 19:00 | NUR ---
REPORT RECEIVED FROM Alecia GRANT LPN, CARE OF PT ASSUMED AT THIS TIME.
--- NOTE | 2020-07-25 21:15 | NUR ---
PHYSICAL ASSESMENT COMPLETE. PT LAYING IN BED. RESPIRATIONS REGULAR AND UNLABORED. NO APPARENT DISTRESS. RLE SHACKLED TO BED, X2 CORRECTIONAL OFFICERS AT BEDSIDE. DRESSING REMOVED. NEW DRESSING APPLIED, 2 FLUFFED, NS DAMPENED 2X2 GENTLY PACKED IN WOUND. X2 ABD PAD OVER TOP. L FOOT WRAPPED IN KERLEX. SECURED WITH KORIN WRAP. SEE E-MAR FOR ADMINISTRATION OF SCHEDULED AND PRN MEDICATION(S). PLAN OF CARE REVIEWED, PT VERBALIZES UNDERSTANDING AND DENIES QUESTIONS. PT IS ABLE TO MAKE NEEDS KNOWN, REQUEST ICE CREAM, ICE CREAM PROVIDED REQQUESTED. DENIES FURTHER NEEDS AT THIS TIME. CALL RAMIREZ WITHIN REACH, AGREES TO CALL PRN.
[2020-07-26] VITALS (7 sets, daily range): BP systolic 139–174; BP diastolic 50–85
--- NOTE | 2020-07-26 00:45 | NUR ---
PT LAYING IN BED, APPEARS TO BE SLEEPING COMFORTABLY, NO APPARENT DISTRESS, RESPIRATIONS REGULAR AND UNLABORED. CALL RAMIREZ REMAINS WITHIN REACH.
--- NOTE | 2020-07-26 02:45 | NUR ---
PT CALLS AND REPORTS "SOMETHING IS BITING ME", PT REPORTS HE HAS "A BUNCH OF BITES ALL OVER", DENIES SEEING SOMETHING BITE HIM, ON ASSESMENT NO "BITES" VISIBLE, SKIN IS NORMAL AND W/O CHANGE. 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
--- NOTE | 2020-07-26 07:30 | NUR ---
RECIEVED REPORT FROM ELIZABETH VALADEZ . PT RESTING IN SEMI FOWLERS POSITION UPON ENTERING ROOM. INTRODUCED SELF TO PT AND DISCUSSED POC. RESRPIATIONS ARE EVEN AND UNLABROED. ALL SFETY PRECAUTIONS ARE IN PLACE WITH CALL LIGHT IN REACH. WILL CONTINUE TO MONITOR
--- NOTE | 2020-07-26 08:02 | NUR ---
ASSESSMENT AND VITALS COMPLETED AT THIS TIME. RESPIRATIONS ARE EVEN AND UNLABORED. LUNG SOUNDS ARE CLEAR. HEART RHYTHM IS NORMAL. BOWEL SOUNDS ARE ACTIVE IN ALL QUADRANTS, LAST REPORTED BM 07/24/20. #22G IN RAC RUNNING WITH NS PER ORDER, SITE APPEARS HEALTHY AND PATENT. RADIAL AND RIGHT PEDAL PULSES ARE STRONG WITH NORMAL CAPILLARY REFILL. PT SHACKLED TO BED, SKIN IS WARM AND DRY WITH NO BREAKDOWN. DRESSING TO LEFT FOOT, UNABLE TO PALPATE PEDAL PULSE, NORMAL CAPILLARY REFILL. PT DENIES ANY PAIN OR DISCOMFORTS. ALL SAFETY PRECAUTIONS ARE IN PLACE WITH CALL LIGHT IN REACH AND 2 GAURDS AT BEDSIDE. WILL CONTINUE TO MONITOR
--- NOTE | 2020-07-26 08:20 | NUR ---
DR NIEVES AT BEDSIDE. DRESSING CHANGED AT THIS TIME.
[2020-07-26 09:18] LABS: HEMOGLOBIN 8.4 g/dl (14.0-18.0); IMMATURE GRANULOCYTES 0.5 % (0.0-5.0); MEAN CELL VOLUME 92.3 fL CALC (80.0-100.0); MEAN CORPUSCULAR HGB CONC 33.6 g/dL CAL (32.0-36.0); NEUT# 2.76 thou/uL (1.82-7.42); RED BLOOD COUNT 2.71 mill/uL (4.70-6.10); RED CELL DISTRI WIDTH 14.5 % (11.5-15.5)
--- NOTE | 2020-07-26 09:40 | NUR ---
WET TO DRY DRESSING REAPPLIED TO LEFT FOOT. DRESSING REMAINS [facility] AT THIS TIME.
[2020-07-26 10:13] LABS: ANION GAP 10 (6-22 (CALC)); BUN 15 mg/dL (9-20); BUN/CREATININE RATIO 19 (12-20 (CALC)); CARBON DIOXIDE 22 mmol/l (22-30); CHLORIDE 109 mmol/l (95-108); CREATININE 0.8 mg/dL (0.7-1.3); GFR > 60 ML/MIN (>=60 (CALC)); GFR FOR AFR.AMER. > 60 ML/MIN (>=60 (CALC)); POTASSIUM 3.8 mmol/l (3.5-5.1); SODIUM 137 mmol/l (137-146)
--- NOTE | 2020-07-26 12:11 | NUR ---
PT RESTING IN SEMI FOWLERS POSITION WATCHING TV. RESPIRATIONS ARE EVEN AND UNLABORED WITH NO SIGNS OF DISTRESS. PT DENIES ANY PAIN OR DISCOMFORTS.ASSESSMENT REMAINS THE SAME. VERBAL ORDERS TO TURN IV FLUIDS DOWN TO KVO. FLUIDS RUNNING WITH EASE. ALL SAFETY PRECAUTIONS ARE IN PLACE WITH CALL LIGHT AND GAURDS AT BEDSIDE. WILL CONTINUE TO MONITOR
--- NOTE | 2020-07-26 12:58 | NUR ---
PT TRANSPORTED TO RADIOLOGY FOR INSERTION OF PICC LINE IN STABLE CONDITION VIA WHEELCHAIR ACCOMPAINED BY KJ SUAREZ
--- NOTE | 2020-07-26 13:30 | NUR ---
PT RETURNED BACK TO [facility] ROOM 283 VIA WHEELCHAIR IN STABLE CONDITION. ORDERS TO ELEVATE RIGHT ARM AND APPLY WARM MOIST COMPRESSESS DUE TO SWELLING OF RIGHT ARM .
--- NOTE | 2020-07-26 15:45 | NUR ---
CONSULT WITH DR MARTINEZ INFECTION DISEASE AT BEDSIDE ON TABLET TO DISCUSSE POC WITH PT
--- NOTE | 2020-07-26 16:32 | NUR ---
REPORTED BP 167/85. DPARAMJIT NOTIFIED OF BP . RESPIRATIONS ARE EVEN AND UNLABORED WITH NO SIGNS OF DISTRESS NOTED. PT DENIES ANY PAIN OR DISCOMFORTS. BRIEN SAFTEY PRECAUTIONS ARE IN PLACE WITH CALL LIGHT IN REACH. WILL CONTINUE TO MONITOR
--- NOTE | 2020-07-26 17:54 | NUR ---
DRESSING TO LEFT FOOT CHANGED AT THIS TIME. PT TOLERATED WELL. DRESSING REMAINS CDI AT THIS TIME.
--- NOTE | 2020-07-26 19:01 | NUR ---
REPORT FROM PRADEEP CRUZ. PT NOTED SITTING UP IN BED. ALERT AND ORIENTED. NO APPARENT DISTRESS NOTED. X2 GUARDS AT BEDSIDE, SHACKLED BY RIGHT ANKLE. DRESSING NOTED TO YONATHAN FAULKNER. DOUBLE LUMEN PICC TO JOSE, SITE APPEARS HEALTHY. PT DENIES ANY PAIN OR DISCOMFORT AT THIS TIME. DISCUSSED POC AND SAFETY PRECAUTIONS. PT VERBALIZED UNDERSTANDING. CALL LIGHT WITHIN REACH. WILL CONTINUE TO MONITOR.
--- NOTE | 2020-07-26 20:10 | NUR ---
RN ON SHIFT TO ADMINISTER IV APRESOLINE FOR BP 174/79.
--- NOTE | 2020-07-26 21:46 | NUR ---
REASSESSMENT BP 139/62. PT RESTING IN BED. DIET COLA PROVIDED UPON REQUEST. URINAL EMPTIED OF 550ML CLEAR YELLOW URINE. NO OTHER WANTS OR NEEDS. NO APPARENT DISTRESS NOTED. PT REMAINS AFEBRILE. LLE ELEVATED ON PILLOW. DRESSING CDI. CALL LIGHT WITHIN REACH. WILL CONTINUE TO MONITOR.
--- NOTE | 2020-07-27 01:32 | NUR ---
DRESSING CHANGED PER ORDER. PT TOLERATED WELL.
[2020-07-27 04:00] VITALS: BP 133/69
--- NOTE | 2020-07-27 04:25 | NUR ---
LABS OBTAINED FROM PICC LINE PER PROTOCOL. PT TOLERATED WELL. IV ABT INITIATED ORDERED. WILL CONTINUE TO MONITOR.
[2020-07-27 05:14] LABS: HEMATOCRIT 22.4 % (39.0-50.0); HEMOGLOBIN 7.5 g/dl (14.0-18.0); MEAN CELL VOLUME 90.7 fL CALC (80.0-100.0); MEAN CORPUSCULAR HGB 30.4 pG CALC (26.0-32.0); MEAN CORPUSCULAR HGB CONC 33.5 g/dL CAL (32.0-36.0); RED BLOOD COUNT 2.47 mill/uL (4.70-6.10); RED CELL DISTRI WIDTH 14.3 % (11.5-15.5)
[2020-07-27 05:36] LABS: ANION GAP 8 (6-22 (CALC)); BUN 12 mg/dL (9-20); BUN/CREATININE RATIO 20 (12-20 (CALC)); CARBON DIOXIDE 22 mmol/l (22-30); CHLORIDE 108 mmol/l (95-108); CREATININE 0.6 mg/dL (0.7-1.3); GFR > 60 ML/MIN (>=60 (CALC)); GFR FOR AFR.AMER. > 60 ML/MIN (>=60 (CALC)); MAGNESIUM 1.6 mg/dL (1.6-2.3); POTASSIUM 3.5 mmol/l (3.5-5.1); SODIUM 135 mmol/l (137-146)
--- NOTE | 2020-07-27 05:45 | NUR ---
GLUCOSE 56 NOTED ON LAB RESULTS. NO S/S OF LOW BLOOD SUGAR NOTED. SNACK AND ORANGE JUICE PROVIDED AT THIS TIME. PT STATES " MY BLOOD SUGAR IS ALWAYS LOW IN THE MORNING". WILL CONTINUE TO MONITOR AND RECHECK.
--- NOTE | 2020-07-27 07:05 | NUR ---
REPORT RECEIVED FROM ANTHONY CROWE.
[2020-07-27 08:30] VITALS: BP 153/77
--- NOTE | 2020-07-27 08:30 | NUR ---
PT RESTING IN SEMI FOWLERS POSITION WITH X2 GUARDS AT BEDSIDE AND RIGHT ANKLE SHACKLED TO BED,PT A&O X3;VS OBTAINED AND ASSESSMENT COMPLETED;PT DENIES ANY CURRENT PAIN OR DISCOMFORTS,PAIN SCALE AND REPORTING EDUCATED;PT POST OP I&D OF LEFT FOOT 07/24/20;RESPIRATIONS EVEN AND UNLABORED ON RA,CLEAR LUNG SOUNDS;ABDOMEN SOFT ON PALPATION AND ACTIVE IN ALL 4 QUADRANTS;STRONG PEDAL PULSES;DRESSING TO LEFT REMOVED AT THIS TIME,SITE CLEANSED WITH SALINE AND NEW MOIST/DRY DRESSING APPLIED AND SECURED WITH KERLEX AND KORIN WRAP;PT TOLERATED DRESSING CHANGED WELL;DL JOSE PICCLINE FLUSHED AND PATENT WITH GOOD BLOOD RETURN NOTED;PT REMAINS IN AIR/CONTACT PRECAUTIONS DUE TO COVID 19 DX;PT DENIES ANY ADDITIONAL NEEDS AND IS ENCOURAGED TO CALL FOR ASSISTANCE IF NEEDED;CALL LIGHT IN REACH;WILL CONTINUE TO MONITOR
--- NOTE | 2020-07-27 08:40 | NUR ---
AT BEDSIDE DISCUSSING POC WITH PT.
[2020-07-27] MEDS ORDERED: CEFAZOLIN500 MG IV (09:59)
[2020-07-27] MEDS ORDERED: SYNTHROID25 MCG PO (09:59)
--- NOTE | 2020-07-27 12:20 | NUR ---
PT RESTING IN SEMI FOWLERS POSITION WITH X2 GUARDS AT BEDSIDE AND RIGHT ANKLE SHACKLED TO BED;RESPIRATIONS EVEN AND UNLABORED ON RA;PT REPORTS HEADACHE AND LEFT FOOT PAIN RATING 6/10 ON THE PAIN SCALE,PT MEDICATED WITH PRN TYLENOL 650MG PO AT THIS TIME;IV ABX COMPLETED; AT BEDSIDE ASSESSING WOUND;PT DENIES ANY ADDITIONAL NEEDS;ENCOURAGED TO CALL FOR ASSISTANCE IF NEEDED;CALL LIGHT IN REACH;WILL CONTINUE TO MONITOR
--- NOTE | 2020-07-27 12:34 | NUR ---
[facility] NOTIFIED OF POTENTIAL FIORUCCI CASE TOMORROW 07/28/20
[2020-07-27 15:00] VITALS: BP 163/84
--- NOTE | 2020-07-27 15:40 | NUR ---
PT RESTING IN SEMI FOWLERS POSITION WITH X2 GUARDS AT BEDSIDE;RESPIRATIONS EVEN AND UNLABORED ON RA;PT REPORTS PAIN TO LLE AND REQUESTS PAIN MEDICATION,PT REFUSES PRN PERCOCET AND DILAUDID;PT EDUCATED ON MED SCHEDULE FOR TYLENOL AND INFORMED IT IS TO SOON FOR ANOTHER DOSE;EYAL ANRP NOTIFIED AND NEW ORDER TO BE REVEIVED;JOSE PICCLINE REMAINS PATENT;PT DENIES ANY ADDITIONAL NEEDS AT THIS TIME AND IS ENCOURAGED TO CALL FOR ASSISTANCE IF NEEDED;CALL LIGHT IN REACH;WILL CONTINUE TO MONITOR
--- NOTE | 2020-07-27 15:50 | NUR ---
PT MEDICATED WITH PRN TORADOL 15MG IVP AT THIS TIME FOR LLE PAIN RATING 6/10 ON THE PAIN SCALE, DL PICCLINE FLUSHED WITH HEPRAIN AT THIS TIME;WILL CONTINUE TO MONITOR FOR EFFECTIVENESS
--- NOTE | 2020-07-27 16:35 | NUR ---
DRESSING TO LLE REMOVED AT THIS TIME,SITE CLEANSED WITH SALINE AND MOIST/DRY DRESSING RE-APPLIED;DRESSING SECURED WITH ABD PAD,KERLEX AND KORIN WRAP;PT TOLERATED DRESSING CHANGE WELL;PT REPORTS PAIN RELIEF AFTER PRN TORADOL ADMINISTRATION;PT DENIES ANY ADDITIONAL NEEDS;CALL LIGHT IN REACH;WILL CONTUNUE TO MONITOR
[2020-07-27 17:10] VITALS: BP 167/80
[2020-07-27 19:43] VITALS: BP 169/83
--- NOTE | 2020-07-27 19:43 | NUR ---
PT RESTING IN BED. RESPIRATIONS EVEN AND UNLABORED ON RA. LUNGS SOUND DIMINISHED. DRESSING TO LEFT FOOT IS CDI. PT DENIES ANY PAIN OR DISCOMFORT AT THIS TIME. SAFETY PRECAUTIONS IN PLACE. WILL CONTINUE TO MONITOR.
--- NOTE | 2020-07-27 22:15 | NUR ---
PT COMPLAINS OF FEELING SWEATY AND GOWN AND SHEETS FEELING DAMP. PT PROVIDED WITH A NEW GOWN AND LINENS CHANGED AT THIS TIME. SARETY PRECAUTIONS IN PLACE. WILL CONTINUE TO MONITOR.
[2020-07-28] VITALS (10 sets, daily range): BP systolic 134–158; BP diastolic 65–80
--- NOTE | 2020-07-28 01:54 | NUR ---
PT RESTING IN BED. DRESSING CHANGED PER ORDERS, PT TOLERATRED WELL. FOOT ELIVATED ON A PILLOW. SAFETY PRECAUTIONS IN PLACE. WILL CONTINUE TO MONTIOR.
--- NOTE | 2020-07-28 03:07 | NUR ---
PT RESTING IN BED, NO S/S OF DISTRESS AT THIS TIME. WILL CONTINUE TO MONITOR.
--- NOTE | 2020-07-28 07:20 | NUR ---
REPORT RECEIVED FROM ELIZABETH MAYFIELD;PT TRANSPORTED TO OR AT THIS TIME IN STABLE CONDITION VIA STRETCHER ACCOMPANIED BY ELIZABETH SAEED.
[2020-07-28 08:40] LABS: HEMOGLOBIN 7.9 g/dl (14.0-18.0); IMMATURE GRANULOCYTES 0.3 % (0.0-5.0); MEAN CELL VOLUME 90.6 fL CALC (80.0-100.0); MEAN CORPUSCULAR HGB 31.1 pG CALC (26.0-32.0); MEAN CORPUSCULAR HGB CONC 34.3 g/dL CAL (32.0-36.0); NEUT# 2.52 thou/uL (1.82-7.42); RED BLOOD COUNT 2.54 mill/uL (4.70-6.10); RED CELL DISTRI WIDTH 14.3 % (11.5-15.5)
--- NOTE | 2020-07-28 08:51 | NUR ---
PT RETURNED TO MED/SURG ROOM 283 IN STABLE CONDITION VIA STRETCHER ACCOMPANIED BY Rosario GREENFIELD AND ELIZABETH SAEED;PT TRANSPORTED SELF TO HOSPITAL BED;PT A&O X3,ORIENTED TO ROOM AND CALL LIGHT SYSTEM;PT POST OP I&D OF LEFT FOOT WITH WOUND VAC PLACEMENT;PT DENIES ANY CURRENT PAIN OR DISCOMFORTS,PAIN SCALE AND REPORTING EDUCATED;RESPIRATIONS EVEN AND UNLABORED ON RA,CLEAR LUNG SOUNDS;ABDOMEN SOFT ON PALPATION AND HYPOACTIVE IN ALL 4 QUADRANTS;STRONG PEDAL PULSES, WOUND VAC NOTED TO LEFT FOOT RUNNING AT 125MMHG WITH EASE;JOSE PICCLINE FLUSHED AND PATENT,SITE APPEARS HEALTHY;GATORADE PROVIDED PER REQUEST;PT DENIES ANY ADDITIONAL NEEDS AT THIS TIME AND IS ENCOURAGED TO CALL FOR ASSISTANCE IF NEEDED;PT REMAINS IN AIR/CONTACT PRECAUTIONS;CALL LIGHT IN REACH;WILL CONTINUE TO MONITOR
[2020-07-28 08:52] LABS: ALBUMIN 2.1 g/dL (3.2-5.0); ALKALINE PHOSPHATASE 68 u/l (38-126); ANION GAP 9 (6-22 (CALC)); BUN 13 mg/dL (9-20); BUN/CREATININE RATIO 19 (12-20 (CALC)); CARBON DIOXIDE 24 mmol/l (22-30); CHLORIDE 107 mmol/l (95-108); CREATININE 0.7 mg/dL (0.7-1.3); GFR > 60 ML/MIN (>=60 (CALC)); GFR FOR AFR.AMER. > 60 ML/MIN (>=60 (CALC)); POTASSIUM 3.5 mmol/l (3.5-5.1); SGOT/AST 25 u/l (17-59); SODIUM 137 mmol/l (137-146); TOTAL PROTEIN 5.2 g/dL (6.3-8.2)
--- NOTE | 2020-07-28 11:50 | NUR ---
PT RESTING IN SEMI FOWLERS POSITION WITH X2 GUARDS AT BEDSIDE AND RIGHT ANKLE SHACKLED TO BEDSIDE;RESPIRATIONS EVEN AND UNLABORED ON RA;PT DENIES ANY CURRENT PAIN OR DISCOMFORTS,PAIN SCALE AND REPORTING EDUCATED;WOUND VAC RUNNING AT 125MMHG WITH EASE,DRESSING CDI;JOSE PICCLINE REMAINS PATENT AND ABX STARTED AT THIS TIME;ACCUCHECK 213, PT COVERED WITH SLIDING SCALE NOVOLOG PER ORDER;PT DENIES ANY ADDITIONAL NEEDS AT THIS TIME;LUNCH TRAY PROVIDED;ENCOURAGED TO CALL FOR ASSISTANCE IF NEEDED;CALL LIGHT IN REACH;WILL CONTINUE TO MONITOR
--- NOTE | 2020-07-28 14:13 | NUR ---
[facility] CALLED AT THIS TIME.SPOKE WITH TIFFANY NOTIFIYING OF WOUND VAC #[id number] PLACED ON PT TODAY ON OR. CONFIRMATION # PROVIDED BY TIFFANY [id number].
--- NOTE | 2020-07-28 14:28 | NUR ---
EYAL ANSARI AT BEDSIDE DISCUSSING POC.
--- NOTE | 2020-07-28 15:30 | NUR ---
PT RESTING IN SEMI FOWLERS POSITION WITH X2 GUARDS AT BEDSIDE AND RIGHT ANKLE SHACKLED TO BEDSIDE;RESPIRATIONS EVEN AND UNLABORED ON RA;PT DENIES ANY CURRENT PAIN OR DISCOMFORTS;WOUND VAC REMAINS PATENT TO LEFT FOOT;JOSE PICCLINE PATENT;PT DENIES ANY ADDITIONAL NEEDS AT THIS TIME AND IS ENCOURAGED TO CALL FOR ASSISTANCE IF NEEDED;FALL PRECAUTIONS IN PLACE WITH CALL LIGHT IN REACH;WILL CONTINUE TO MONITOR
--- NOTE | 2020-07-28 20:01 | NUR ---
NURSING RPORT RECEIVED FROM [facility]. PT ASSESSMENT AND VITALS COMPLETE. PT RESTING IN SEMI FOWLERS POSITION WITH X2 GUARDS AT BEDSIDE AND RIGHT ANKLE SHACKLED TO BED;RESPIRATIONS EVEN AND UNLABORED ON RA;PT REPORTS HEADACHE AND LEFT FOOT PAIN RATING 6/10 ON THE PAIN SCALE,PT MEDICATED WITH PRN 15 MG TORADOL AT THIS TIME; WOUND VAC SET AT 125 NAD APPEARS TO PUMPING A SCANT AMOUNT OF DRAINAGE. PT DENIES ANY ADDITIONAL NEEDS;ENCOURAGED TO CALL FOR ASSISTANCE IF NEEDED;CALL LIGHT IN REACH;WILL CONTINUE TO MONITOR
--- NOTE | 2020-07-29 01:11 | NUR ---
PT RESTING IN BED, NO S/S OF DISTRESS AT THIS TIME. WILL CONTINUE TO MONITOR.
[2020-07-29 04:45] VITALS: BP 132/64
--- NOTE | 2020-07-29 05:07 | NUR ---
PT RESTING IN BED WITH NO DISTRESS NOTED. DENIES PAIN/NEEDS. WOUND VAC SET AT 125 MMGH WITH SCANT VISIBLE DRAINAGE. ENCOURAGED TO CALL FOR ANY NEEDS.
--- NOTE | 2020-07-29 07:05 | NUR ---
REPORT RECEIVED FROM ELIZABETH CHRISTOPHER.
--- NOTE | 2020-07-29 07:59 | NUR ---
AT BEDSIDE DISCUSSING POC WITH PT.
[2020-07-29 08:03] VITALS: BP 164/83
--- NOTE | 2020-07-29 08:05 | NUR ---
PT RESTING IN SEMI FOWLERS POSITION WITH X2 GUARDS AT BEDSIDE AND RIGHT ANKLE SHACKLED TO BEDSIDE;VS OBTAINED AND ASSESSMENT COMPLETED;PT DENIES ANY CURRENT PAIN OR DISCOMFORTS,PAIN SCALE AND REPORTING EDUCATED;PT POD #1 DEBRIMENT AND WOUND VAC PLACEMENT TO LEFT FOOT;RESPIRATIONS EVEN AND UNLABORED ON RA,CLEAR LUNG SOUNDS;ABDOMEN SOFT ON PALPATION AND ACTIVE IN ALL 4 QUADRANTS,LAST BM 07/26/20 SO MOM PROVIDED AT THIS TIME TO ASSIST IN BOWEL CARE;STRONG PEDAL PULSES;WOUND VAC TO LEFT FOOT PATENT RUNNING AT 125MMHG,SITE APPEARS HEALTHY;ACCUCHECK 82, NO COVERAGE NEEDED;DL JOSE PICCLINE FLUSHED AND PATENT WITH GOOD BLOOD RETURN NOTED;PT DENIES ANY ADDITIONAL NEEDS AT THIS TIME AND IS ENCOURAGED TO CALL FOR ASSISTANCE IF NEEDED;CALL LIGHT IN REACH;WILL CONTINUE TO MONITOR
--- NOTE | 2020-07-29 11:50 | NUR ---
PT RESTING IN SEMI FOWLERS POSITION WITH X2 GUARDS AT BEDSIDE AND RIGHT ANKLE SHACKLED TO BEDSIDE;RESPIRATIONS EVEN AND UNLABORED ON RA;PT DENIES ANY CURRENT PAIN OR DISCOMFORTS;ACCUCHECK 112, NO COVERAGE NEEDED;JOSE PICCLINE FLUSHED AND PATENT,ABX STARTED AT THIS TIME;WOUND VAC RUNNING WITH EASE AND DRESSING CDI;PT REPORTS LARGE/BROWN BM;ASSESSMENT REMAINS UNCHANGED AT THIS TIME;ENCOURAGED TO CALL FOR ASSISTANCE IF NEEDED;FALL PRECAUTIONS IN PLACE WITH CALL LIGHT IN REACH;WILL CONTINUE TO MONITOR
[2020-07-29 14:41] VITALS: BP 158/80
--- NOTE | 2020-07-29 15:30 | NUR ---
PT RESTING IN SEMI FOWLERS POSITION WITH X2 GUARDS AT BEDSIDE AND RIGHT ANKLE SHACKLED TO BEDSIDE;RESPIRATIONS EVEN AND UNLABORED ON RA;PT DENIES ANY CURRENT PAIN OR DISCOMFORTS;JOSE PICCLINE PATENT;WOUND VAC IN PLACE AND RUNNING AT 125MMHG WITH EASE;ASSESSMENT REMAINS UNCHANGED AT THIS TIME;DISCHARGE PENDING [facility] OBTAINING A WOUND VAC FOR DISCHARGE, PT EDUCATED ON POC AND VERBALIZES UNDERSTANDING;PT DENIES ANY ADDITIONAL NEEDS AT THIS TIME AND IS ENCOURAGED TO CALL FOR ASSISTANCE IF NEEDED;FALL PRECAUTIONS REMAIN IN PLACE WITH BED IN THE LOWEST POSITION AND CALL LIGHT IN REACH;WILL CONTINUE TO MONITOR
--- NOTE | 2020-07-29 17:25 | NUR ---
SPOKE WITH OFFICER(NURSE) MELIZA AT [facility]. WAS UNSURE ABOUT THE WOUND VAC. ATTEMPTED TO TRANSFER TO ANOTHER DEPT. NO ANSWER RANG AND THEN A BUSY SIGNAL. NUMBER TO CALL BACK IS [phone] ASK FOR THE MEDICAL DEPT.
[2020-07-29 19:15] VITALS: BP 176/81
--- NOTE | 2020-07-29 20:02 | NUR ---
PTS REPORT RECEIVED FROM YVETTE BHANDARI. ASSESSMENT AND VITALS COMPLETE. PT IS RESTING IN SEMI FOWLERS POSITION WITH X2 GUARDS AT BEDSIDE AND RIGHT ANKLE SHACKLED TO BEDSIDE;PT STATES HE HAS NUMBNESS IN HIS LEFT ARM DISTAL FROM HIS ELBOW. NEURO CHECK PREFORMED. RESPIRATIONS EVEN AND UNLABORED ON RA,CLEAR LUNG SOUNDS;ABDOMEN SOFT ON PALPATION AND ACTIVE IN ALL 4 QUADRANTS, PT STATES THAT HE HAD 2 BM TODAY. STRONG PEDAL PULSES; WOUND VAC TO LEFT FOOT PATENT RUNNING AT 125MMHG,SITE APPEARS HEALTHY;DL JOSE PICCLINE FLUSHED AND PATENT WITH GOOD BLOOD RETURN NOTED;PT DENIES ANY ADDITIONAL NEEDS AT THIS TIME AND IS ENCOURAGED TO CALL FOR ASSISTANCE IF NEEDED;CALL LIGHT IN REACH. CONTINUE TO MONITOR
--- NOTE | 2020-07-29 20:40 | NUR ---
PT C/O PAIN IN LOWER ARM/WRIST AREA, DENIES RADIATING, DENIES CP, DENIES SOB, NO S/O DISTRESS, REFUSES PAIN MEDICATIONS STATING IT WILL CONSTIPATE HIM. WE OFFERED A STOOL SOFTENER TO COUNTERACT/REFUSED STATING IT IS DIFFICULT TO GET UP, HAVE PRIVACY AND GO TO RESTROOM. NEURO'S INTACT, PT MEDICATED FOR BP AND W/PM MEDICATIONS AT THIS TIME. WILL CONTINUE TO MONITOR. PT INSTRUCTED TO CALL W/FURTHER CONCERNS.
--- NOTE | 2020-07-29 20:45 | NUR ---
PT HAS BEEN MEDICATED W/PM MEDICAITONS, WILL FOLLOW-UP FOR BP RECHECK FOR RESPONSE TO MEDICATION.
--- NOTE | 2020-07-29 22:59 | NUR ---
RECHECK B/P 169/76.
[2020-07-29 23:01] VITALS: BP 169/76
--- NOTE | 2020-07-29 23:09 | NUR ---
PT MEDICATED FOR ELEVATED BP. PT REPORTS THAT HE IS ON MULTIPLE BP PILLS, BUT THAT IT IS USUALLY CONTROLLED BETTER THAN WHAT HE IS RUNNING HERE.
[2020-07-29 23:10] VITALS: BP 172/78
--- NOTE | 2020-07-30 00:44 | NUR ---
PT FOUND TYO BE RESTING IN BED APPEARS COMFORTABLE IN NO DISTRESS. ORIENTED X3 CALL RAMIREZ WITHIN REACH. WILL CONTINUE TO OBSERVE.
--- NOTE | 2020-07-30 01:00 | NUR ---
PT REFUSES RETAKE OF BP
--- NOTE | 2020-07-30 02:11 | NUR ---
PT SLEEPING, GUARDS X2 AT BEDSIDE. LIGHTS ARE OUT, BUT TV IS ON. NO S/O DISTRESS, GUARDS DENIED ANY NEEDS FOR PT. PT DID NOT AWAKE TO MY ENTERING ROOM.
--- NOTE | 2020-07-30 04:33 | NUR ---
v/s assessed and pt medicated as orders provide. guards at bedside x2. woundvac to LLE ball of foot w/complete seal suction set @125 continuous. Pt provided ice water, denies any other needs at this time but has been instructed to call as needs arise.
[2020-07-30 04:35] VITALS: BP 140/68
[2020-07-30 08:17] VITALS: BP 147/69
--- NOTE | 2020-07-30 08:17 | NUR ---
RECIEVED REPORT FROM ELIZABETH CHRISTOPHER. PT RESTING IN SEMI FOWLERS POSITION WITH SHEETS OVER HEAD UPON ENTERING ROOM.INTRODUCED SELF TO PT AND DISCUSSED POC.ASSESSMENT AND VITALS COMPLETED AT THIS TIME. RESPIRATIONS AE EVEN AND UNLABORED WITH NO SIGNS OF DISTRESS. LUNG SOUNDS ARE CLEAR. HEART RHYTHM IS NORMAL. BOWLE SOUNDS ARE ACTIVE IN ALL QUADRANTS, LAST REPORTED BM 07/29/2020. RADIAL AND PEDAL PULSES ARE STRONG WITH NORMAL CAPILLARY REFILL. JOSE PICC FLUSHED WITH GOOD BLOOD RETURN, SITE APPEARS HEALTHY AND PATENT. PT COMPLAINS OF 9/10 PAIN IN LEFT FOOT, PT REFUSED PAIN MEDICATION. PT HAD I&D ON 07/28/2020 BY LARA, WOUND VAC REMAINS IN PLACE. TRACE OF EDEMA PRESENT IN LEFT FOOT. SKIN IS WARM/DRY WITH NO BREAKDOWN. PT DENIES ANY OTHER NEEDS AT THIS TIME. ALL SAFETY PRECAUTIONS IN PLACE WITH 2 GAURDS AT BEDSIDE. ISOLATION PRECAUTIONS IN PLACE. WILL CONTINUE TO MONITOR.
[2020-07-30 09:44] VITALS: BP 147/69
--- NOTE | 2020-07-30 12:30 | NUR ---
PT RESTING IN SEMI FOWLERS POSITION WATCHING TV UPON ENTERING ROOM. RESPIRATIONS ARE EVEN AND UNLABORED WITH NO SIGNS OF DISTRESS NOTED. IV ANTIBIOTICS RUNNING WITH EASE. PT DENIES ANY PAIN OR DISCOMFORTS AT THIS TIME. ALL SAFETY AND ISOLATION PRECAUTIONS ARE IN PLACE WITH CALL LIGHT IN REACH. WILL CONTINUE TO MONITOR
--- NOTE | 2020-07-30 14:05 | NUR ---
REPORT CALLED TO Alecia RIDER RN AT [facility].
--- NOTE | 2020-07-30 14:51 | NUR ---
PT EDUCATED ON DISCHARGE INSTRUCTIONS AND NEW MEDICATIONS SYNTHROID AND ANCEF IV. PT VERBALIZED UNDERSTANDING. ORDERS TO APPLY WET TO DRY DRESSING FOR TRANSPORTATION [facility]. DRESSING [facility] AT THIS TIME. AWAITING FOR TRANSPORTATION AT THIS TIME. ALL SAFTEY AND ISOLATION PRECAUTIONS ARE IN PLACE WITH CALL LIGHT IN REACH. WILL CONTINUE TO MONITOR
--- NOTE | 2020-07-30 15:15 | NUR ---
Discharge instructions given. Patient verbalizes understanding of same. Discharged in stable condition via Wheelchair to Home with family. All belongings sent with pt. PT DISCHARGE VIA WHEELCHAIR ACCOMPAINED BY WRITTER AND GUARDS TO [facility] . PT LEFT WITH ALL DISCHARGE INSTRUCTIONS AND BELONGINGS.
== END 2020-07-30 15:15 | DRG 981 ==
LOC: ED 09:18 → ED-I 10:30 → ED 10:48 → MS2 10:49
PROVIDERS: Family Medicine; Internal Medicine; Nurse Practitioner; Nurse Practitioner Family; ADMIT Internal Medicine; ATTEND Internal Medicine
PROC: 0J9R0ZZ Drainage of Left Foot Subcutaneous Tissue and Fascia, Open Approach (ICD-10-PCS; principal; 2020-07-24)
PROC: 02HV33Z Insertion of Infusion Device into Superior Vena Cava, Percutaneous Approach (ICD-10-PCS; 2020-07-26)
PROC: B518ZZA Fluoroscopy of Superior Vena Cava, Guidance (ICD-10-PCS; 2020-07-26)
PROC: 0JDR0ZZ Extraction of Left Foot Subcutaneous Tissue and Fascia, Open Approach (ICD-10-PCS; 2020-07-28)
DX: E11.69 Type 2 diabetes mellitus with other specified complication (principal); U07.1 COVID-19; M86.8X7 Other osteomyelitis, ankle and foot; L02.612 Cutaneous abscess of left foot; L03.116 Cellulitis of left lower limb; L97.429 Non-pressure chronic ulcer of left heel and midfoot with unspecified severity; E11.621 Type 2 diabetes mellitus with foot ulcer; I10 Essential (primary) hypertension; D64.9 Anemia, unspecified; M31.1 Thrombotic microangiopathy; E03.9 Hypothyroidism, unspecified; B95.61 Methicillin susceptible Staphylococcus aureus infection as the cause of diseases classified elsewhere; Z79.4 Long term (current) use of insulin
CPT/HCPCS: G0378; J3370; Q3014

== ENCOUNTER 2020-08-25 14:25 | Inpatient (IN) | payer OTHER ==
[~2020-08-25] VITALS: Ht 175.3 cm; Wt 84.0 kg
[~2020-08-25 14:25] MED LIST changes: +CEFAZOLIN500 MG IV; +GLIPIZIDE10 MG PO; +LASIX40 MG PO; +NOVOLIN N100 UNIT/1 SC; +NOVOLOG100 UNIT/M SC; +SYNTHROID25 MCG PO
--- NOTE | 2020-08-25 14:55 | NUR ---
PT TO ROOM VIA WC WITH TWO GUARDS FROM [facility] WITH WRIST AND ANKLE SHAKLES IN PLACE
[2020-08-25 15:33] LABS: HEMATOCRIT 26.6 % (39.0-50.0); IMMATURE GRANULOCYTES 0.3 % (0.0-5.0); MEAN CORPUSCULAR HGB 31.5 pG CALC (26.0-32.0); MEAN CORPUSCULAR HGB CONC 33.8 g/dL CAL (32.0-36.0); NEUT# 4.89 thou/uL (1.82-7.42); RED BLOOD COUNT 2.86 mill/uL (4.70-6.10); RED CELL DISTRI WIDTH 14.7 % (11.5-15.5)
[2020-08-25] MEDS ORDERED: CIPROFLOXACN500 MG PO (15:40)
[2020-08-25] MEDS ORDERED: POT CHLORIDE10 ME5 PO (15:42)
[2020-08-25] MEDS ORDERED: PAIN RELIEF650 MG PO (15:43)
[2020-08-25] MEDS ORDERED: SPIRONOLACT25 MG PO (15:44)
--- NOTE | 2020-08-25 15:50 | NUR ---
PT STATES HAVING A 4CM X 4 CM ULCER IN THE UPPER BOTTOM PART OF LEFT FOOT THAT STARTED A WEEK AGO AND WAS DEBRIDED. CURRENTLY THERE IS PACKING. PT STATES HAVING NO PAIN. OFFICERS WHO ARE AT BEDSIDE STATE THAT HE HAD AN APPOINTMENT AT WOUND CARE AND HE WAS SENT HERE BECAUSE IT SEEMS IF THE REDDENING IS SPREADING TO THE ANKLE. AFIBRILE. PMS+ IN THE EXTREM.WILL CONTINUE TO MONITOR.
[2020-08-25 15:51] LABS: ALKALINE PHOSPHATASE 69 u/l (38-126); ANION GAP 13 (6-22 (CALC)); BUN 12 mg/dL (9-20); BUN/CREATININE RATIO 22 (12-20 (CALC)); CARBON DIOXIDE 23 mmol/l (22-30); CHLORIDE 104 mmol/l (95-108); CREATININE 0.6 mg/dL (0.7-1.3); GFR > 60 ML/MIN (>=60 (CALC)); GFR FOR AFR.AMER. > 60 ML/MIN (>=60 (CALC)); SGOT/AST 28 u/l (17-59); SODIUM 136 mmol/l (137-146)
[2020-08-25 15:55] LABS: BILIRUBIN, TOTAL 1.6 mg/dL (0.0-1.4)
[2020-08-25 16:04] LABS: ACT PARTIAL THROMBO TIME 28.8 SECONDS (20.0-32.5); INTERNATIONAL NORMALIZED RATIO 1.3 RATIO (0.7-1.3); PROTHROMBIN TIME 12.5 SECONDS (9.0-12.5)
--- NOTE | 2020-08-25 16:30 | NUR ---
DRESSING APPLIED TO WOUND, MD PREFERED TO KEEP PACKING IN. PT TOLERATED WELL. SITTING IN STRETCHER WITH OFFICERS AT BEDSIDE
--- NOTE | 2020-08-25 17:40 | NUR ---
GAVE REPORT TO YVETTE. DR. MENESES WAS NOTIFIED ABOUT ELEVATED BP AND HE STATES THAT HE WILL GIVE MEDICATION ONCE PT ARRIVES UPSTAIRS.
--- NOTE | 2020-08-25 17:45 | NUR ---
PT HAS ARRIVED FROM ER VIA WITH 2 GUARDS PRESENT. IV SITE INTACT. HAS A R UPPER ARM PICC LINE. DRESSING ON LEFT FOOT. CONTINUE TO OSBERVE AND MONITOR.
--- NOTE | 2020-08-25 17:50 | NUR ---
PT TRANSPORTED TO [facility] STABLE AND IN NO DISTRESS BY BERNICE VIA W/C. CARE ASSUMED TO YVETTE Admission Note Report Given to: YVETTE Transported by: X Wheelchair Stretcher Transported with: Nurse X Transporter X Patent IV O2 Evaporator Operator Molasses Location: ICU X MS2
[2020-08-25 17:54] VITALS: BP 204/97
--- NOTE | 2020-08-25 18:30 | NUR ---
ASSESSMENT IS COMPLETED: IV SITE IS FREE FROM REDNESS OR EDEMA. HR IS REG,PULSES ARE STRONG X4, ABD IS SOFT WITH ACTIVE BS. BREATH SOUNDS ARE CLEAR, BILATERALLY, PT HAS A DRESSING ON LEFT FOOT THAT WAS PLACED BY WOUND CARE CHECKED BY ER DR. AND RE WRAPPED. HAS MARKING ON HIS LEFT FOOT BY THE 3RD TOE IS RED IN COLOR. CONTINUE TO OBSERVE AND MONITOR. BP IS HIGH, PT DID NOT TAKE ANY MEDICATIONS AT [facility] DUE TO BEING AT DR APPOINTMENTS EARLY THIS AM.
[2020-08-25 19:00] VITALS: BP 159/77
--- NOTE | 2020-08-25 20:55 | NUR ---
PT MEDICATED ORDERS PROVIDE AND ASSESSMENT COMPLETED AT THIS TIME. LEFT FOOT WOUND OBSERVED TO HAVE DRESSING CDI AND MARKED FOR REDNESS, NO S/O SPREAD AT THIS TIME. POC AND MEDICATIONS DISCUSSED W/PT. PROVIDED SNACK AT THIS TIME AND ICE-CHIPS PROVIDED TO GUARD X2 AT BEDSIDE. PT IS SHACKLED BY R.ANKLE TO BED. DENIES ANY OTHER NEEDS AT THIS TIME.
--- NOTE | 2020-08-26 00:40 | NUR ---
PT MEDICATED W/IV ANTIBIOTIC THERAPY ORDERS PROVIDE. PT ASKED TO HAVE HIS SUGAR CHECKED. ACCU-CHECK @85. PT PROVIDED SNACK AT THIS TIME. DENIES ANY OTHER NEEDS. CALL LIGHT W/IN REACH.
--- NOTE | 2020-08-26 01:09 | NUR ---
IV FLUSHED, NO S/O DISTRESS. PT WATCHING TV, GUARDS X2 AT BEDSIDE. PT DENIES ANY OTHER NEEDS AT THIS TIME.
[2020-08-26 04:00] VITALS: BP 147/78
--- NOTE | 2020-08-26 05:34 | NUR ---
PT ANTIBIOTIC THERAPY ADMINISTERED AT THIS TIME. PT DENIES ANY OTHER NEEDS. PT IS AWAKE, SITTING UP WATCHING TV. GUARDS X2 AT BEDSIDE.
--- NOTE | 2020-08-26 06:03 | NUR ---
IV ANTIBIOTIC THERAPY COMPLETED AT THIS TIME. PICC-LINE FLUSHED AND HEP-LOCKED BOTH LUMENS/PATENT.
--- NOTE | 2020-08-26 07:15 | NUR ---
REPORT RECEIVED FROM ELIZABETH CEBALLOS.
--- NOTE | 2020-08-26 07:25 | NUR ---
PT note Patient was screened for PT intervention and appears to have no needs at this time
--- NOTE | 2020-08-26 08:45 | NUR ---
AT BEDSIDE DISCUSSING POC.
[2020-08-26 09:08] VITALS: BP 132/67
--- NOTE | 2020-08-26 09:10 | NUR ---
PT RESTING IN SEMI FOWLERS WITH X2 GAURDS AT BEDSIDE AND RIGHT LEG SHACKLED TO BEDSIDE,A&O X3;VS OBTAINED AND ASSESSMENT COMPLETED;PT DENIES ANY CURRENT PAIN OR DISCOMFORTS,PAIN SCALE AND REPORTING EDUCATED;RESPIRATIONS EVEN AND UNLABORED ON RA,CLEAR LUNG SOUNDS;ABDOMEN SOFT ON PALPATION AND ACTIVE IN ALL 4 QUADRANTS;WEAK PEDAL PULSES;LEFT FOOT ULCER NOTED AND WET/DRY DRESSING APPLIED AT THIS TIME PER MD;JOSE PICCLINE SL FLUSHED AND PATENT,ABX STARTED PER ORDER;ACCUCHECK 92, NO COVERAGE NEEDED;PT REMAINS IN AIR/CONTACT PRECAUTIONS DUE TO COVID 19 DX;PT DENIES ANY ADDITIONAL NEEDS AT THIS TIME AND IS ENCOURAGED TO CALL FOR ASSISTANCE IF NEEDED;FALL PRECAUTIONS IN PLACE WITH BED IN THE LOWEST POSITION AND CALL LIGHT IN REACH;WILL CONTINUE TO MONTIOR
--- NOTE | 2020-08-26 11:25 | NUR ---
PT RESTING IN SEMI FOWLERS POSITION WITH X2 GUARDS AT BEDSIDE AND RLE SHACKLED TO BED;RESPIRATIONS EVEN AND UNLABORED ON RA;PT DENIES ANY CURRENT PAIN OR DISCOMFORTS;JOSE PICCLINE PATENT;DRESSING TO LLE REMAINS CDI;ACCUCHECK 138, NO COVERAGE NEEDED;APPLE JUICE PROVIDED BY REQUEST;ASSESSMENT REMAINS UNCHANGED;ENCOURAGED TO CALL FOR ASSISTANCE IF NEEDED;FALL PRECAUTIONS REMAIN IN PLACE WITH BED IN THE LOWEST POSITION AND CALL LIGHT IN REACH;WILL CONTINUE TO MONTIOR
[2020-08-26 16:15] VITALS: BP 153/80
--- NOTE | 2020-08-26 17:12 | NUR ---
PT RESTING IN SEMI FOWLERS POSITION WITH X2 GUARDS AT BEDSIDE;RESPIRATIONS EVEN AND UNLABORED ON RA;PT DENIES ANY CURRENT PAIN OR DISCOMFORTS;JOSE LOERAINE PATENT;ACCUCHECK 169, PT REFUSES [employer] COVERAGE;DRESSING CHANGED TO LLE DUE TO MODERATE AMOUNT OF BLOOD DRAINAGE;PT DENIES ANY ADDITIONAL NEEDS AT THIS TIME AND IS ENCOURAGED TO CALL FOR ASSISTANCE IF NEEDED;FALL PRECAUTIONS IN PLACE WITH CALL LIGHT IN REACH;WILL CONTINUE TO MONITOR
[2020-08-26 19:50] VITALS: BP 157/75
--- NOTE | 2020-08-26 20:47 | NUR ---
IV ANTIBIOTIC THERAPY COMPLETED AT THIS TIME. PICC LINE FLUSHED AND HEP LOCKED. PT PROIDED DIET SODA AND IS EATING DINNER TRAY AT THIS TIME.
--- NOTE | 2020-08-27 05:10 | NUR ---
BLOOD DRAWN FOR LAB AND ANTIBIOTIC THERAPY ADMINISTERED AT THIS TIME. PT AMBULATED TO RESTROOM AND BACK TO THE BED. GUARDS X2 AT SIDE.
[2020-08-27 05:13] VITALS: BP 157/80
[2020-08-27 06:35] LABS: HEMATOCRIT 23.3 % (39.0-50.0); HEMOGLOBIN 7.7 g/dl (14.0-18.0); MEAN CELL VOLUME 95.5 fL CALC (80.0-100.0); MEAN CORPUSCULAR HGB 31.6 pG CALC (26.0-32.0); RED BLOOD COUNT 2.44 mill/uL (4.70-6.10); RED CELL DISTRI WIDTH 14.5 % (11.5-15.5)
[2020-08-27 07:04] LABS: ANION GAP 8 (6-22 (CALC)); BUN 14 mg/dL (9-20); BUN/CREATININE RATIO 21 (12-20 (CALC)); CARBON DIOXIDE 27 mmol/l (22-30); CHLORIDE 108 mmol/l (95-108); CREATININE 0.7 mg/dL (0.7-1.3); GFR > 60 ML/MIN (>=60 (CALC)); GFR FOR AFR.AMER. > 60 ML/MIN (>=60 (CALC)); POTASSIUM 4.3 mmol/l (3.5-5.1); SODIUM 138 mmol/l (137-146)
[2020-08-27 09:00] VITALS: BP 168/87
--- NOTE | 2020-08-27 09:00 | NUR ---
RECIEVED REPORT FROM ELIZABETH CEBALLOS. PT RESTING IN HIGH FOWLERS SPOTIION UPON ENTERING ROOM. INTRODUCED SELF TO PT AND DISCUSSED POC. PT IS FROM [facility], TWO GUARDS PRESENT AT BEDSIDE. ASSESMENT AND VITALS COMPLETED AT THIS TIME. BP 168/67, HR 87, O2 99% ON ROOM AIR. RESPIRATIONS ARE EVEN AND UNLABORED WIHT NO SIGNS OF DISTRESS NOTED. LUNG SOUNDS ARE CLEAR. HEART RHYTHM IS NORMAL. BOWEL SOUNDS ARE ACTIVE IN ALL QUADRANTS, LAST REPORTED BM 08/27/2020. RADIAL AND RIGHT PEDAL PULSES ARE STRONG WITH NORMAL CAPILLARY REFILL.RIGHT LEG SHACKLED TO BED. SKIN IS WARM DRY AND INTACT. DOUBLE LUMEN JOSE PICC FLUSHED WITH GOOD BLOOD RETURN. SITE APPEARS HEALTHY AND PATENT.DRESSIUNG TO LEFT LEG REMAINS CDI. PT DENIES OF ANY PAIN OR DISCOMFORTS AT THIS TIME.ALL SAFETY PRECAUTIONS ARE IN PLACE WITH CALL LIGHT IN REACH.TWO GAURDS REMAINS AT BEDSIDE. WILL CONTINUE TO MONITOR.
--- NOTE | 2020-08-27 10:02 | NUR ---
PT TRANSPORTED TO MRI VIA WHEELCHAIR ACCOMPAINED BY MELE TOUSSAINT IN STABLE CONDITION
--- NOTE | 2020-08-27 11:16 | NUR ---
PT ARRIVED BACK TO [facility] ROOM 289 VIA WHEELCAHIR ACCOMPAINED BY MRI STAFF. PT BACK IN BED RESTING IN SMEI FOWLERS POSITION WITH NO DISRESS NOTED. ALL SAFETY PRECAUTIONS ARE IN PLACE WITH CALL LIGHT IN REACH. WILL CONTINUE TO MONITOR
--- NOTE | 2020-08-27 12:56 | NUR ---
PT RESTING IN SEMI FOWLERS POSITION.PT IS A/OX3. ANTIBIOTICS RUNNING WITH EASE, SITE APPEARS HEALTHY AND PATENT. RESPIRATIONS ARE EVEN AND UNLABORED WITH NO SIGNS OF DISTRESSED NOTED.ALL SAFETY PRECAUTIONS ARE IN PLACE WITH CALL LIGHT IN REACH AND 2 GUARDS PRESENT AT BEDSIDE. WILL CONTINUE TO MONITOR
--- NOTE | 2020-08-27 13:36 | NUR ---
DRESSING TO LEFT LEG CHANGED. PT TOLERATED WELL. WET TO DRY DRESSING [facility] AT THIS ITMT.
--- NOTE | 2020-08-27 16:00 | NUR ---
PT SLEEPING IN SEMI FOWLERS POSTIION. REPSIRATIONS ARE EVEN AND UNLABORED WITH NO SIGNS OF DISTRESS NOTED. RIGHT LEG SHACKLED TO BED. NO SIGNS OF ANY PAIN OR DISCOMFORTS. ALL SAFETY PRECAUTIONS ARE IN PLACE WITH 2 GUARDS AR BEDSIDE.ISOLATION PRECAUTIONS IN PLACE. WILL CONTINUE TO MONITOR
[2020-08-27 16:32] VITALS: BP 143/76
--- NOTE | 2020-08-27 16:48 | NUR ---
REPORTED GLUCOSE OF 71. ICE CREAM GIVEN TO PT. WILL REASSESS.
--- NOTE | 2020-08-27 18:40 | NUR ---
IV ANTIOBOTICS FINISHED. PICC FLUSHED AND HEPARIN LOCKED. PT TOELRATED WELL.AWAITING FOR TRANSPORTATIONS AT THIS TIME. ALL SAFETY PRECAUTIONSA RE IN PLACE. WILL CONTINUE TO MONITOR
[2020-08-27 19:50] VITALS: BP 143/69
--- NOTE | 2020-08-27 20:00 | NUR ---
PATIENT IS ALERT AND ORIENTED X3. ABLE TO MAKE NEEDS KNOW. RESPIRATIONS EASY ON ROOM AIR. SKIN WARM AND DRY. R FOOT WRAPPED WITH DRESSING FOR DIABETIC FOOT ULCER. CONTINUES ON ABT THERAPY FOR FOOT INFECTION. OFFICERS AT BEDSIDE FOR SECURITY. PATIENT IS A RESIDENT OF [facility]. BED IN LOW POSITION. CALL LIGHT WITHIN REACH.
--- NOTE | 2020-08-28 | NUR ---
PATIENT RESTING QUIETLY WITH EYES CLOSED. RESPIRATIONS EASY. BED IN LOW POSITION. CALL LIGHT WITHIN REACH.
[2020-08-28 04:00] VITALS: BP 147/79
--- NOTE | 2020-08-28 04:00 | NUR ---
NO CHANGES. RESTING QUIETLY WITH EYES CLOSED. BED IN LOW POSITION. CALL LIGHT WITHIN REACH.
[2020-08-28 09:02] VITALS: BP 147/71
[2020-08-28 14:50] VITALS: BP 153/82
--- NOTE | 2020-08-28 14:58 | NUR ---
S: NANI GENTILE is a 55 M who presents with DIABETIC FOOT ULCER. He has a history oF OSTEOMYELITIS. All medications in patient's chart were reviewed. O: VS: BP 147/71 , P 64, RR 18,T 97.1 W 83kg, HT 69IN, Scr= 0.7 A: Blood culture is pending P: Patient is on ANCEF 2 GRAMS Q8H. Vancomycin ordered for pharmacy to dose. Start Vancomycin 1500MG IV Q12H. Vancomycin trough is drawn before the 4th dose on 08/29/20 @1130. Vancomycin goal trough is between <15-20 mcg/ml>. Pharmacy will follow and or advise on antibiotics use as needed. ADAN LOOMISD
--- NOTE | 2020-08-28 18:00 | NUR ---
Changed dressign left foot, wd bed beefy red, serro sang dranage, no odor. Cleaned wd with saline and appied w-d dressomg. Patient tolerated well
--- NOTE | 2020-08-28 19:04 | NUR ---
NOTIFIED CHARGE NURSE OF INFECTION DISEASE CONSULT, SHE STATED THAT SHE WOULD PUT IT IN, BUT IT WANT BE DONE UNTIL SUNDAY
[2020-08-28 19:15] VITALS: BP 152/66
--- NOTE | 2020-08-28 20:00 | NUR ---
PATIENT IS ALERT AND ORIENTED X3. ABLE TO MAKE NEEDS KNOWN. PATIENT IS FROM [facility] AND HAS TO OFFICERS AT BEDSIDE AT ALL TIMES. SHACKLED TO BED. SMALL OPEN AREA TO ANKLE D/T SHACKLES. OPEN AREA CLEANED WITH NORMAL SALINE AND DRY DRESSING APPLIED. DENIES PAIN. TOLERATED WELL. BED IN LOW POSITION. CALL LIGHT WITHIN REACH.
--- NOTE | 2020-08-29 | NUR ---
PATIENT RESTING QUIETLY IN BED. EYES CLOSED. RESPIRATIONS EASY ON ROOM AIR. NO ACUTE DISTRESS NOTED. BED IN LOW POSITION. CALL LIGHT WITHIN REACH.
[2020-08-29 04:00] VITALS: BP 137/67
[2020-08-29 08:00] VITALS: BP 151/77
--- NOTE | 2020-08-29 09:00 | NUR ---
PT IS ALERT AND ORIENTED X 3. LUNGS CLEAR, RA. LEFT FOOT DRESSED AND ON A PILLOW. RUE PICC IN PLACE. NO REPORT OF PAIN. GUARDS X 2 AT BEDSIDE.
--- NOTE | 2020-08-29 13:10 | NUR ---
PT CONTINUES AT REST IN THE BED WITH GUARDS X 2 AT BEDSIDE. NO REPORT OF PAIN, NO EVIDENCE OF DISTRESS.
[2020-08-29 15:05] VITALS: BP 141/71
--- NOTE | 2020-08-29 16:23 | NUR ---
PT SEEN RESTING IN BED, EYES CLOSED, GUARDS X 2 AT BEDSIDE.
--- NOTE | 2020-08-29 19:01 | NUR ---
REPORT FROM NEY JOHNSON. ASSUMED CARE AT THIS TIME.
[2020-08-29 20:00] VITALS: BP 139/67
--- NOTE | 2020-08-29 20:11 | NUR ---
ASSESSMENT COMPLETE. NO APPARENT DISTRESS NOTED. IV ABT INFUSING WITHOUT DIFFICULTY INTO JOSE PICC. DRESSING TO LEFT FOOT, CDI. PT DENIES ANY OTHER CURRENT WANTS OR NEEDS. DIABETIC SNACK PROVIDED. X2 GUARDS AT BEDSIDE. CALL LIGHT WITHIN REACH. WILL CONTINUE TO MONITOR.
--- NOTE | 2020-08-30 00:47 | NUR ---
PT RESTING IN BED WITH EYES CLOSED. NO APPARENT DISTRESS NOTED. RESPIRATIONS EVEN AND UNLABORED. X2 GUARDS AT BEDSIDE. PT SHACKLED BY RLE TO BED. PICC LINE FLUSHED, BRISK BLOOD RETURN NOTED. IV ABT INITIATED. PT DENIES ANY CURRENT WANTS OR NEEDS. CALL LIGHT WITHIN REACH. WILL CONTINUE TO MONITOR.
[2020-08-30 03:30] VITALS: BP 130/65
--- NOTE | 2020-08-30 04:27 | NUR ---
LABS OBTAINED FROM [facility]. FLUSHED PER PROTOCOL. PT TOLERATED WELL. NO CURRENT WANTS OR NEEDS. IV ABT NOW INFUSING WITHOUT DIFFICULTY. CALL LIGHT WITHIN REACH. WILL CONTINUE TO MONITOR.
[2020-08-30 04:30] VITALS: BP 145/82
[2020-08-30 05:28] LABS: HEMATOCRIT 24.6 % (39.0-50.0); HEMOGLOBIN 8.3 g/dl (14.0-18.0); MEAN CELL VOLUME 94.6 fL CALC (80.0-100.0); MEAN CORPUSCULAR HGB 31.9 pG CALC (26.0-32.0); MEAN CORPUSCULAR HGB CONC 33.7 g/dL CAL (32.0-36.0); RED BLOOD COUNT 2.6 mill/uL (4.70-6.10); RED CELL DISTRI WIDTH 14.2 % (11.5-15.5)
[2020-08-30 05:45] LABS: ALBUMIN 2.4 g/dL (3.2-5.0); ALKALINE PHOSPHATASE 62 u/l (38-126); ANION GAP 8 (6-22 (CALC)); BUN 16 mg/dL (9-20); BUN/CREATININE RATIO 25 (12-20 (CALC)); CARBON DIOXIDE 26 mmol/l (22-30); CHLORIDE 109 mmol/l (95-108); CREATININE 0.6 mg/dL (0.7-1.3); GFR > 60 ML/MIN (>=60 (CALC)); GFR FOR AFR.AMER. > 60 ML/MIN (>=60 (CALC)); SGOT/AST 25 u/l (17-59); SODIUM 138 mmol/l (137-146)
[2020-08-30 06:04] LABS: BILIRUBIN, TOTAL 0.9 mg/dL (0.0-1.4)
[2020-08-30 07:48] VITALS: BP 137/67
--- NOTE | 2020-08-30 07:48 | NUR ---
PT SITTING IN BED WITH X2 GUARDS AT BEDSIDE. A&O X3.PT DENIES ANY PAIN AT THIS TIME. BLOOD SUGAR THIS MORNING WAS 75, ORANGE JUICE GIVEN TO PT. DRESSING TO LT FOOT CDI. NO OTHER NEEDS AT THIS TIME. ASSESSMENT COMPLETED. DISCUSSED POC. CALL LIGHT IN REACH. CONTINUE TO MONITOR.
--- NOTE | 2020-08-30 09:32 | NUR ---
S: NANI GENTILE is a 55 M who presents with osteomyelitis of left foot. He has a history of DM on insulin, diabetic foot ulcer, HTN, hypothroidism, arthritis. All medications in patient's chart were reviewed. O: VS: BP 137/67 mmHg, P 68 bpm, RR 18 breaths/min, T 97 F W 83.9 kg, HT 69 in, Scr= 0.6 mg/dL, CrCl= 162.2 ml/min A: Blood culture is pending. P: Patient is on Vancomycin IV. Vancomycin ordered for pharmacy to dose. Vancomycin trough levels: 15 mcg/ml Continue Vancomycin 1500 IV Q12H. Vancomycin trough is drawn before the 4th dose on 08/31/20 at 1130. Vancomycin goal trough is between 10-15 mcg/ml. Pharmacy will follow and or advise on antibiotics use as needed.
[2020-08-30 10:20] VITALS: BP 132/75
--- NOTE | 2020-08-30 12:32 | NUR ---
PT SITTING IN BED EATING LUNCH WITH X2 GUARDS AT BEDSIDE. CALL LIGHT IN REACH. CONTINUE TO MONITOR.
[2020-08-30] MEDS ORDERED: CEFEPIME2 GM IV ×2 (16:23→16:56)
[2020-08-30] MEDS ORDERED: VANCOMYCIN HYDRO1 GM IV ×2 (16:23→16:56)
--- NOTE | 2020-08-30 17:05 | NUR ---
PT SITTING IN BED WITH X2 GUARDS AT BEDSIDE. NO DISTRESS NOTED. CALL LIGHT IN REACH. CONTINUE TO MONITOR.
[2020-08-30 19:00] VITALS: BP 141/79
--- NOTE | 2020-08-30 22:18 | NUR ---
PT MEDICATED W/IV ANTIBIOTIC THERAPY AT THIS TIME. GUARDS X2 AT BEDSIDE. PT ASKING FOR ALICJA/TD ICE PROVIDED AVAILABILITY PROVIDED.
--- NOTE | 2020-08-31 00:40 | NUR ---
PT MEDICATED WITH IV ANTIBIOTIC THERAPY AT THIS TIME. GUARD AT BEDSIDE X2. GUARD NEXT TO THE DOOR IS SLEEPING, AWOKE ANSWERED THE PHONE WHILE I WAS IN THE ROOM AND PROMPTLY RETURNED TO SLEEP PRIOR TO MY LEAVING THE ROOM, QUILL BUNCHER AND SORTER WAS ABLE TO OBSERVE GUARD SNORING. PT AWAKE AND ASKING ME ABOUT THIS MEDICAITON AND OTHERS. GUARD NEXT TO WINDOW IS AWAKE AND ATTENTIVE. NO ISSUES W/ PT AT THIS TIME.
[2020-08-31 04:00] VITALS: BP 137/73
--- NOTE | 2020-08-31 04:55 | NUR ---
PT MEDICATED ORDERS PROVIDE W/AM MEDICATION. BLOOD DRAWN FOR LAB AND PICC LINE FLUSHED AND HEP LOCKED. DRESSING CHANGED TO PICC-LINE AT THIS TIME. PT TOLERATED WELL. SITE APPEARS HEALTHY.
[2020-08-31 05:06] LABS: HEMOGLOBIN 7.8 g/dl (14.0-18.0); MEAN CELL VOLUME 93.5 fL CALC (80.0-100.0); MEAN CORPUSCULAR HGB 31.7 pG CALC (26.0-32.0); MEAN CORPUSCULAR HGB CONC 33.9 g/dL CAL (32.0-36.0); PLATELET COUNT 101 thou/uL (130-400); RED BLOOD COUNT 2.46 mill/uL (4.70-6.10); RED CELL DISTRI WIDTH 14.2 % (11.5-15.5)
[2020-08-31 05:24] LABS: ANION GAP 7 (6-22 (CALC)); BUN 17 mg/dL (9-20); BUN/CREATININE RATIO 23 (12-20 (CALC)); C-REACTIVE PROTEIN 1.1 mg/dL (0-0.9); CARBON DIOXIDE 27 mmol/l (22-30); CHLORIDE 108 mmol/l (95-108); CREATININE 0.8 mg/dL (0.7-1.3); GFR > 60 ML/MIN (>=60 (CALC)); GFR FOR AFR.AMER. > 60 ML/MIN (>=60 (CALC)); MAGNESIUM 1.7 mg/dL (1.6-2.3); POTASSIUM 3.9 mmol/l (3.5-5.1); SODIUM 139 mmol/l (137-146)
[2020-08-31 07:06] VITALS: BP 148/75
--- NOTE | 2020-08-31 09:23 | NUR ---
PT SITTING IN BED X2 GUARDS AT BEDSIDE. A&O X3. NO DISTRESS NOTED. PT C/O SLIGHT FOOT PAIN, PAIN MEDICATION OFFERED BUT DECLINED. PICC TO JOSE IN PLACE FLUSHES AND BLOOD RETURN WITH EASE. DRESSING TO BE CHANGED TODAY. DRESSING TO LT FOOT CDI. NO OTHER NEEDS AT THIS TIME. ASSESSMENT COMPLETED. DISCUSSED POC.CALL LIGHT IN REACH. CONTINUE TO MONITOR.
--- NOTE | 2020-08-31 11:03 | NUR ---
Discharge instructions given. Patient verbalizes understanding of same. Pt encouraged to return if symptoms worsen prescription for pain medication given. Discharged in stable condition via wheelchair to home accompanied by staff. All belongings sent with pt.
--- NOTE | 2020-08-31 12:21 | NUR ---
LEONARDO FROM PHARMACY NOTIFIED OF [facility] OF 19. PER [facility]FFANY HOLD SCHEDULED DOSE, NEW DOSAGE TO BE CALCULATED AND BROUGHT.
--- NOTE | 2020-08-31 13:02 | NUR ---
PT SITTING IN BED WITH X2 GUARDS AT BEDSIDE. NO NEEDS AT THIS TIME. CALL LIGHT IN REACH. CONTINUE TO MONITOR.
[2020-08-31 15:15] VITALS: BP 133/66
--- NOTE | 2020-08-31 15:23 | NUR ---
PER LEONARDO PT ABLE TO GET NIGHT DOSE OF CEFEPIME AT 1800 BEFORE PT IS DISCHARGED.
--- NOTE | 2020-08-31 15:36 | NUR ---
PT IS RECEIVING VANCOMYCIN FOR TX OF DIABETIC FOOT INFX. PREVIOUS DOSE WAS VANCOMYCIN 1500MG IV Q12H WITH GOAL TROUGH OF 10-15 MCG/ML. TROUGH TODAY @ 1130 WAS 19. VANCO DOSE CHANGED TO 1G IV Q12H. SCR = 0.8 MG/DL, CRCL = 125 ML/MIN. PHARMACY WILL CONTINUE TO FOLLOW AND ADVISE PRN.
--- NOTE | 2020-08-31 18:54 | NUR ---
REPORT GIVEN TO MANUEL AT [facility]
--- NOTE | 2020-08-31 18:58 | NUR ---
Discharge instructions given. Patient verbalizes understanding of same. Discharged in stable condition via wheelchair to [facility] accompanied by guards . All belongings sent with pt.
== END 2020-08-31 18:58 | DRG 637 ==
LOC: ED 14:25 → ED-I 16:48 → ED 16:55 → MS2 16:56
PROVIDERS: Nurse Practitioner; Nurse Practitioner Family; Student in an Organized Health Care Education/Training Program; ADMIT Internal Medicine; ATTEND Internal Medicine
DX: E11.69 Type 2 diabetes mellitus with other specified complication (principal); U07.1 COVID-19; M86.8X7 Other osteomyelitis, ankle and foot; L97.429 Non-pressure chronic ulcer of left heel and midfoot with unspecified severity; L03.116 Cellulitis of left lower limb; L02.612 Cutaneous abscess of left foot; E11.621 Type 2 diabetes mellitus with foot ulcer; I10 Essential (primary) hypertension; E03.9 Hypothyroidism, unspecified; M19.90 Unspecified osteoarthritis, unspecified site; E11.65 Type 2 diabetes mellitus with hyperglycemia; B95.61 Methicillin susceptible Staphylococcus aureus infection as the cause of diseases classified elsewhere; Z79.4 Long term (current) use of insulin; L97.524 Non-pressure chronic ulcer of other part of left foot with necrosis of bone; R60.9 Edema, unspecified; A49.9 Bacterial infection, unspecified
CPT/HCPCS: J0692; J3370; Q3014

== ENCOUNTER 2020-09-06 15:42 | Emergency (ER) | payer OTHER ==
[~2020-09-06] VITALS: Ht 175.3 cm; Wt 68.0 kg
[~2020-09-06 15:42] MED LIST changes: +CEFEPIME2 GM IV; +CIPROFLOXACN500 MG PO; +PAIN RELIEF650 MG PO; +POT CHLORIDE10 ME5 PO; +SPIRONOLACT25 MG PO; +VANCOMYCIN HYDRO1 GM IV
[2020-09-06 18:37] LABS: HEMATOCRIT 24.5 % (39.0-50.0); HEMOGLOBIN 8.5 g/dl (14.0-18.0); IMMATURE GRANULOCYTES 0.2 % (0.0-5.0); MEAN CELL VOLUME 92.1 fL CALC (80.0-100.0); MEAN CORPUSCULAR HGB CONC 34.7 g/dL CAL (32.0-36.0); NEUT# 3.15 thou/uL (1.82-7.42); RED BLOOD COUNT 2.66 mill/uL (4.70-6.10); RED CELL DISTRI WIDTH 13.7 % (11.5-15.5)
[2020-09-06 18:52] LABS: ALBUMIN 2.7 g/dL (3.2-5.0); ALKALINE PHOSPHATASE 75 u/l (38-126); ANION GAP 12 (6-22 (CALC)); BILIRUBIN, TOTAL 1.1 mg/dL (0.0-1.4); BUN 21 mg/dL (9-20); BUN/CREATININE RATIO 30 (12-20 (CALC)); CARBON DIOXIDE 23 mmol/l (22-30); CHLORIDE 106 mmol/l (95-108); CREATININE 0.7 mg/dL (0.7-1.3); GFR > 60 ML/MIN (>=60 (CALC)); GFR FOR AFR.AMER. > 60 ML/MIN (>=60 (CALC)); POTASSIUM 3.8 mmol/l (3.5-5.1); SGOT/AST 28 u/l (17-59); SODIUM 137 mmol/l (137-146); TOTAL PROTEIN 6.6 g/dL (6.3-8.2)
[2020-09-06 20:40] VITALS: BP 156/81
== END 2020-09-06 20:40 | DRG 638 ==
LOC: ED 15:42
PROVIDERS: Family Medicine
DX: E11.621 Type 2 diabetes mellitus with foot ulcer (principal); L97.429 Non-pressure chronic ulcer of left heel and midfoot with unspecified severity; L97.319 Non-pressure chronic ulcer of right ankle with unspecified severity; E11.622 Type 2 diabetes mellitus with other skin ulcer; D64.9 Anemia, unspecified; I10 Essential (primary) hypertension; Z79.4 Long term (current) use of insulin; Z20.828 Contact with and (suspected) exposure to other viral communicable diseases

== ENCOUNTER 2020-10-07 10:23 | Emergency (ER) | payer OTHER ==
[~2020-10-07] VITALS: Ht 175.3 cm; Wt 83.0 kg
[2020-10-07 11:39] LABS: HEMATOCRIT 24.8 % (39.0-50.0); HEMOGLOBIN 8.4 g/dl (14.0-18.0); IMMATURE GRANULOCYTES 0.2 % (0.0-5.0); MEAN CELL VOLUME 92.2 fL CALC (80.0-100.0); MEAN CORPUSCULAR HGB 31.2 pG CALC (26.0-32.0); MEAN CORPUSCULAR HGB CONC 33.9 g/dL CAL (32.0-36.0); NEUT# 2.72 thou/uL (1.82-7.42); RED BLOOD COUNT 2.69 mill/uL (4.70-6.10); RED CELL DISTRI WIDTH 13.2 % (11.5-15.5)
[2020-10-07 12:03] LABS: ALBUMIN 3.2 g/dL (3.2-5.0); ALKALINE PHOSPHATASE 85 u/l (38-126); ANION GAP 12 (6-22 (CALC)); BILIRUBIN, TOTAL 1.2 mg/dL (0.0-1.4); BUN 27 mg/dL (9-20); BUN/CREATININE RATIO 23 (12-20 (CALC)); CARBON DIOXIDE 21 mmol/l (22-30); CHLORIDE 109 mmol/l (95-108); CREATININE 1.2 mg/dL (0.7-1.3); GFR > 60 ML/MIN (>=60 (CALC)); GFR FOR AFR.AMER. > 60 ML/MIN (>=60 (CALC)); POTASSIUM 4.2 mmol/l (3.5-5.1); SGOT/AST 28 u/l (17-59); SODIUM 138 mmol/l (137-146); TOTAL PROTEIN 7.1 g/dL (6.3-8.2)
[2020-10-07 13:00] VITALS: BP 150/72
== END 2020-10-07 13:05 | DRG 812 ==
LOC: ED 10:23
PROVIDERS: Family Medicine
DX: D64.9 Anemia, unspecified (principal); E11.9 Type 2 diabetes mellitus without complications; I10 Essential (primary) hypertension; Z79.84 Long term (current) use of oral hypoglycemic drugs; Z20.828 Contact with and (suspected) exposure to other viral communicable diseases

== ENCOUNTER 2020-10-17 02:36 | Emergency (ER) | payer OTHER ==
[~2020-10-17] VITALS: Ht 175.3 cm; Wt 81.8 kg
[2020-10-17 03:12] LABS: HEMATOCRIT 29.4 % (39.0-50.0); HEMOGLOBIN 10.2 g/dl (14.0-18.0); IMMATURE GRANULOCYTES 0.1 % (0.0-5.0); MEAN CELL VOLUME 89.4 fL CALC (80.0-100.0); MEAN CORPUSCULAR HGB CONC 34.7 g/dL CAL (32.0-36.0); NEUT# 6.1 thou/uL (1.82-7.42); RED BLOOD COUNT 3.29 mill/uL (4.70-6.10)
[2020-10-17 03:13] LABS: URINE BILIRUBIN - DIPSTICK NEGATIVE (NEGATIVE); URINE BLOOD DIPSTICK TRACE-INTACT (NEGATIVE); URINE COLOR YELLOW; URINE GLUCOSE - DIPSTICK NEGATIVE (NEGATIVE); URINE KETONE NEGATIVE (NEGATIVE); URINE LEUK ESTERASE NEGATIVE (NEGATIVE); URINE NITRITE - DIPSTICK NEGATIVE (Negative); URINE PROTEIN - DIPSTICK NEGATIVE (NEG-TRACE); URINE UROBILINOGEN - DIPSTICK 0.2 E.U./dL (0.2)
[2020-10-17] MEDS ORDERED: GLIPIZIDE ER10 M1 PO (03:18)
[2020-10-17 03:25] LABS: ALBUMIN 3.8 g/dL (3.2-5.0); ALKALINE PHOSPHATASE 85 u/l (38-126); BUN 35 mg/dL (9-20); BUN/CREATININE RATIO 22 (12-20 (CALC)); CHLORIDE 111 mmol/l (95-108); CREATININE 1.6 mg/dL (0.7-1.3); ETHYL ALCOHOL 0 mg/dl (0-30); GFR 45 ML/MIN (>=60 (CALC)); GFR FOR AFR.AMER. 55 ML/MIN (>=60 (CALC)); SGOT/AST 38 u/l (17-59); SODIUM 141 mmol/l (137-146)
[2020-10-17 03:32] LABS: ANION GAP 19 (6-22 (CALC)); BILIRUBIN, TOTAL 1.8 mg/dL (0.0-1.4); CARBON DIOXIDE 16 mmol/l (22-30); POTASSIUM 5.3 mmol/l (3.5-5.1)
[2020-10-17 03:36] LABS: MYOGLOBIN 66 ng/mL (0 - 121)
[2020-10-17 04:10] VITALS: BP 135/66
== END 2020-10-17 05:12 | DRG 948 ==
LOC: ED 02:36
PROVIDERS: Family Medicine
DX: R41.0 Disorientation, unspecified (principal); N17.9 Acute kidney failure, unspecified; E11.9 Type 2 diabetes mellitus without complications; I10 Essential (primary) hypertension; E03.9 Hypothyroidism, unspecified; Z79.84 Long term (current) use of oral hypoglycemic drugs; Z20.828 Contact with and (suspected) exposure to other viral communicable diseases

== ENCOUNTER 2021-10-17 10:37 | Observation (INO) | payer OTHER ==
[~2021-10-17] VITALS: Ht 175.3 cm; Wt 87.0 kg
[~2021-10-17 10:37] MED LIST changes: +GLIPIZIDE ER10 M1 PO
[2021-10-17 11:35] LABS: HEMATOCRIT 27.3 % (39.0-50.0); HEMOGLOBIN 9.8 g/dl (14.0-18.0); IMMATURE GRANULOCYTES 0.6 % (0.0-5.0); MEAN CELL VOLUME 88.1 fL CALC (80.0-100.0); MEAN CORPUSCULAR HGB 31.6 pG CALC (26.0-32.0); MEAN CORPUSCULAR HGB CONC 35.9 g/dL CAL (32.0-36.0); NEUT# 12.5 thou/uL (1.82-7.42); RED BLOOD COUNT 3.1 mill/uL (4.70-6.10); RED CELL DISTRI WIDTH 13.4 % (11.5-15.5)
[2021-10-17 12:01] LABS: CREATININE 1.8 mg/dL (0.7-1.3); POTASSIUM 4.6 mmol/l (3.5-5.1); TOTAL PROTEIN 6.6 g/dL (6.3-8.2)
[2021-10-17 12:02] LABS: C-REACTIVE PROTEIN 8.6 mg/dL (0-0.9)
[2021-10-17 12:27] LABS: ALBUMIN 2.8 g/dL (3.2-5.0)
[2021-10-17 17:40] VITALS: BP 172/77
[2021-10-17 19:30] VITALS: BP 140/73
[2021-10-18] VITALS: BP 146/74
[2021-10-18 04:00] VITALS: BP 154/80
[2021-10-18 04:48] LABS: HEMATOCRIT 24.4 % (39.0-50.0); HEMOGLOBIN 8.8 g/dl (14.0-18.0); MEAN CELL VOLUME 88.1 fL CALC (80.0-100.0); MEAN CORPUSCULAR HGB 31.8 pG CALC (26.0-32.0); MEAN CORPUSCULAR HGB CONC 36.1 g/dL CAL (32.0-36.0); RED BLOOD COUNT 2.77 mill/uL (4.70-6.10); RED CELL DISTRI WIDTH 13.2 % (11.5-15.5)
[2021-10-18 04:58] LABS: CREATININE 1.8 mg/dL (0.7-1.3); MAGNESIUM 1.8 mg/dL (1.6-2.3)
[2021-10-18 05:01] LABS: POTASSIUM 5.4 mmol/l (3.5-5.1)
[2021-10-18 07:00] VITALS: BP 153/80
[2021-10-18 08:41] VITALS: BP 153/80
[2021-10-18] MEDS ORDERED: DOXYCYCL HYC100 MG PO (11:43)
[2021-10-18] MEDS ORDERED: LEVEMIR100 UNIT SC (11:44)
[2021-10-18] MEDS ORDERED: AMLODIPINE BESYL5 MG PO (11:47)
== END 2021-10-18 12:50 | DRG 603 ==
LOC: ED 10:37 → ED-I 15:02 → ED 16:35 → MS2 16:36
PROVIDERS: Emergency Medicine; ADMIT Hospitalist; ATTEND Hospitalist
DX: L03.116 Cellulitis of left lower limb (principal); E11.65 Type 2 diabetes mellitus with hyperglycemia; I10 Essential (primary) hypertension; E03.9 Hypothyroidism, unspecified; Z79.84 Long term (current) use of oral hypoglycemic drugs; Z20.822 Contact with and (suspected) exposure to COVID-19
CPT/HCPCS: G0378

== ENCOUNTER 2022-06-28 14:27 | Inpatient (IN) | payer OTHER ==
[~2022-06-28] VITALS: Ht 175.3 cm; Wt 82.0 kg
[~2022-06-28 14:27] MED LIST changes: +AMLODIPINE BESYL5 MG PO; -GLIPIZIDE ER10 M1 PO; +GLIPIZIDE10 M2 PO; +LEVEMIR100 UNIT SC
[2022-06-28 15:12] VITALS: BP 149/71
[2022-06-28 15:30] VITALS: BP 142/67
[2022-06-28 16:02] LABS: HEMATOCRIT 26.5 % (39.0-50.0); HEMOGLOBIN 8.9 g/dl (14.0-18.0); IMMATURE GRANULOCYTES 0.8 % (0.0-5.0); MEAN CORPUSCULAR HGB 31.8 pG CALC (26.0-32.0); MEAN CORPUSCULAR HGB CONC 33.6 g/dL CAL (32.0-36.0); NEUT# 3.52 thou/uL (1.82-7.42); RED BLOOD COUNT 2.8 mill/uL (4.70-6.10); RED CELL DISTRI WIDTH 13.7 % (11.5-15.5)
[2022-06-28 16:19] LABS: ALBUMIN 2.7 g/dL (3.2-5.0); ALKALINE PHOSPHATASE 76 u/l (38-126); ANION GAP 11 (6-22 (CALC)); BILIRUBIN, TOTAL 1.2 mg/dL (0.0-1.4); BUN 25 mg/dL (9-20); BUN/CREATININE RATIO 18 (12-20 (CALC)); CARBON DIOXIDE 20 mmol/l (22-30); CHLORIDE 108 mmol/l (95-108); CREATININE 1.4 mg/dL (0.7-1.3); GFR FOR AFR.AMER. > 60 ML/MIN (>=60 (CALC)); GFR OTHER RACES 53 ML/MIN (>=60 (CALC)); SGOT/AST 52 u/l (17-59); SODIUM 135 mmol/l (137-146); TOTAL PROTEIN 6.1 g/dL (6.3-8.2)
[2022-06-28 16:22] LABS: POTASSIUM 3.9 mmol/l (3.5-5.1)
[2022-06-28 16:23] LABS: MEAN CELL VOLUME 94.6 fL CALC (80.0-100.0)
[2022-06-28] MEDS ORDERED: PROCRIT4000 UNIT/ IM (17:07)
[2022-06-28] MEDS ORDERED: LASIX 40 MG TAB40 MG PO (17:08)
[2022-06-28] MEDS ORDERED: POTASSIUM CHLO20 ME2 PO (17:09)
[2022-06-28] MEDS ORDERED: LISINOPRIL10 MG PO (17:10)
[2022-06-28] MEDS ORDERED: SEMGLEE SC (17:11)
[2022-06-28 19:08] VITALS: BP 176/74
[2022-06-29] VITALS (7 sets, daily range): BP systolic 122–151; BP diastolic 48–67
[2022-06-29 06:34] LABS: HEMATOCRIT 21.4 % (39.0-50.0); HEMOGLOBIN 7.3 g/dl (14.0-18.0); MEAN CELL VOLUME 96.4 fL CALC (80.0-100.0); MEAN CORPUSCULAR HGB 32.9 pG CALC (26.0-32.0); MEAN CORPUSCULAR HGB CONC 34.1 g/dL CAL (32.0-36.0); PLATELET COUNT 71 thou/uL (130-400); RED BLOOD COUNT 2.22 mill/uL (4.70-6.10); RED CELL DISTRI WIDTH 13.6 % (11.5-15.5)
[2022-06-29 06:45] LABS: ANION GAP 8 (6-22 (CALC)); BUN 21 mg/dL (9-20); BUN/CREATININE RATIO 17 (12-20 (CALC)); CARBON DIOXIDE 21 mmol/l (22-30); CHLORIDE 113 mmol/l (95-108); CREATININE 1.2 mg/dL (0.7-1.3); GFR FOR AFR.AMER. > 60 ML/MIN (>=60 (CALC)); GFR OTHER RACES > 60 ML/MIN (>=60 (CALC)); POTASSIUM 4.3 mmol/l (3.5-5.1); SODIUM 138 mmol/l (137-146)
[2022-06-29] MEDS ORDERED: SEMGLEE SC (09:56)
[2022-06-29] MEDS ORDERED: NORVASC5 M1 PO (09:58)
[2022-06-30] VITALS (7 sets, daily range): BP systolic 132–172; BP diastolic 62–76
[2022-06-30 04:01] LABS: HEMATOCRIT 20.8 % (39.0-50.0); HEMOGLOBIN 7.3 g/dl (14.0-18.0); MEAN CORPUSCULAR HGB 32.3 pG CALC (26.0-32.0); MEAN CORPUSCULAR HGB CONC 35.1 g/dL CAL (32.0-36.0); RED BLOOD COUNT 2.26 mill/uL (4.70-6.10); RED CELL DISTRI WIDTH 13.7 % (11.5-15.5)
[2022-06-30 04:21] LABS: ANION GAP 6 (6-22 (CALC)); BUN 21 mg/dL (9-20); BUN/CREATININE RATIO 16 (12-20 (CALC)); CARBON DIOXIDE 22 mmol/l (22-30); CHLORIDE 113 mmol/l (95-108); CREATININE 1.3 mg/dL (0.7-1.3); GFR FOR AFR.AMER. > 60 ML/MIN (>=60 (CALC)); GFR OTHER RACES 58 ML/MIN (>=60 (CALC)); MAGNESIUM 2.2 mg/dL (1.6-2.3); POTASSIUM 4.3 mmol/l (3.5-5.1); SODIUM 136 mmol/l (137-146)
[2022-07-01] VITALS: BP 127/60
[2022-07-01 00:21] VITALS: BP 127/60
[2022-07-01 04:00] VITALS: BP 144/66
[2022-07-01 04:19] VITALS: BP 144/66
[2022-07-01 05:44] LABS: HEMATOCRIT 21.1 % (39.0-50.0); HEMOGLOBIN 7.4 g/dl (14.0-18.0); IMMATURE GRANULOCYTES 0.7 % (0.0-5.0); MEAN CELL VOLUME 93.4 fL CALC (80.0-100.0); MEAN CORPUSCULAR HGB 32.7 pG CALC (26.0-32.0); MEAN CORPUSCULAR HGB CONC 35.1 g/dL CAL (32.0-36.0); NEUT# 4.4 thou/uL (1.82-7.42); RED BLOOD COUNT 2.26 mill/uL (4.70-6.10); RED CELL DISTRI WIDTH 13.2 % (11.5-15.5)
[2022-07-01 06:46] LABS: ANION GAP 6 (6-22 (CALC)); BUN 18 mg/dL (9-20); BUN/CREATININE RATIO 17 (12-20 (CALC)); CARBON DIOXIDE 20 mmol/l (22-30); CHLORIDE 112 mmol/l (95-108); CREATININE 1.1 mg/dL (0.7-1.3); GFR FOR AFR.AMER. > 60 ML/MIN (>=60 (CALC)); GFR OTHER RACES > 60 ML/MIN (>=60 (CALC)); MAGNESIUM 2.1 mg/dL (1.6-2.3); POTASSIUM 4.2 mmol/l (3.5-5.1); SODIUM 133 mmol/l (137-146)
[2022-07-01 07:39] VITALS: BP 153/66
[2022-07-01] MEDS ORDERED: DOXYCYCLINE100 MG PO (11:43)
== END 2022-07-01 12:45 | DRG 638 ==
LOC: ED 14:27 → ED-I 15:21 → ED 15:21 → ED-I 16:00 → ED 16:36 → MS2 16:37
PROVIDERS: Family Medicine; Internal Medicine; ADMIT Internal Medicine; ATTEND Internal Medicine
DX: E11.628 Type 2 diabetes mellitus with other skin complications (principal); L03.116 Cellulitis of left lower limb; D69.6 Thrombocytopenia, unspecified; N17.9 Acute kidney failure, unspecified; I10 Essential (primary) hypertension; D63.8 Anemia in other chronic diseases classified elsewhere; E03.9 Hypothyroidism, unspecified; B95.7 Other staphylococcus as the cause of diseases classified elsewhere; Z79.84 Long term (current) use of oral hypoglycemic drugs; Z79.4 Long term (current) use of insulin; Z20.822 Contact with and (suspected) exposure to COVID-19
CPT/HCPCS: G0378; J0692; J3370

== ENCOUNTER 2022-07-15 11:12 | Emergency (ER) | payer OTHER ==
[~2022-07-15] VITALS: Ht 175.3 cm; Wt 90.9 kg
[~2022-07-15 11:12] MED LIST changes: +DOXYCYCLINE100 MG PO; +LISINOPRIL10 MG PO; +NORVASC5 M1 PO; +POTASSIUM CHLO20 ME2 PO; +PROCRIT4000 UNIT/ IM; +SEMGLEE SC
[2022-07-15 11:56] LABS: HEMOGLOBIN 9.2 g/dl (14.0-18.0); IMMATURE GRANULOCYTES 0.1 % (0.0-5.0); MEAN CELL VOLUME 98.3 fL CALC (80.0-100.0); MEAN CORPUSCULAR HGB 31.8 pG CALC (26.0-32.0); MEAN CORPUSCULAR HGB CONC 32.4 g/dL CAL (32.0-36.0); NEUT# 4.04 thou/uL (1.82-7.42); RED BLOOD COUNT 2.89 mill/uL (4.70-6.10); RED CELL DISTRI WIDTH 14.4 % (11.5-15.5)
[2022-07-15 12:02] LABS: GFR FOR AFR.AMER. > 60 ML/MIN (>=60 (CALC)); GFR OTHER RACES > 60 ML/MIN (>=60 (CALC))
[2022-07-15 12:07] LABS: INTERNATIONAL NORMALIZED RATIO 1.2 RATIO (0.7-1.3); PROTHROMBIN TIME 11.9 SECONDS (9.0-12.5)
[2022-07-15 12:09] LABS: ALBUMIN 3.1 g/dL (3.2-5.0); ALKALINE PHOSPHATASE 101 u/l (38-126); BUN 16 mg/dL (9-20); BUN/CREATININE RATIO 12 (12-20 (CALC)); CARBON DIOXIDE 18 mmol/l (22-30); CHLORIDE 115 mmol/l (95-108); CREATININE 1.3 mg/dL (0.7-1.3); GFR FOR AFR.AMER. > 60 ML/MIN (>=60 (CALC)); GFR OTHER RACES 58 ML/MIN (>=60 (CALC)); LIPASE 323 u/l (23-300); POTASSIUM 4.5 mmol/l (3.5-5.1); SGOT/AST 32 u/l (17-59)
[2022-07-15 12:10] LABS: ANION GAP 15 (6-22 (CALC)); BILIRUBIN, TOTAL 0.7 mg/dL (0.0-1.4); HEMATOCRIT 28.4 % (39.0-50.0); SODIUM 143 mmol/l (137-146); TOTAL PROTEIN 7.7 g/dL (6.3-8.2)
[2022-07-15 13:03] VITALS: BP 154/66
== END 2022-07-15 13:34 | disposition home or self-care (01) | DRG 812 ==
LOC: ED 11:12
PROVIDERS: Family Medicine
DX: D64.9 Anemia, unspecified (principal); L03.116 Cellulitis of left lower limb; I10 Essential (primary) hypertension; E11.9 Type 2 diabetes mellitus without complications; Z79.84 Long term (current) use of oral hypoglycemic drugs; Z79.4 Long term (current) use of insulin; Z20.822 Contact with and (suspected) exposure to COVID-19

== ENCOUNTER 2022-07-18 15:22 | Emergency (ER) | payer OTHER ==
[2022-07-18] VITALS (7 sets, daily range): BP systolic 133–169; BP diastolic 66–75
[~2022-07-18] VITALS: Ht 177.8 cm; Wt 83.0 kg
[2022-07-18 16:07] LABS: HEMATOCRIT 25.8 % (39.0-50.0); HEMOGLOBIN 8.4 g/dl (14.0-18.0); IMMATURE GRANULOCYTES 0.2 % (0.0-5.0); MEAN CORPUSCULAR HGB 31.6 pG CALC (26.0-32.0); MEAN CORPUSCULAR HGB CONC 32.6 g/dL CAL (32.0-36.0); NEUT# 3.2 thou/uL (1.82-7.42); RED BLOOD COUNT 2.66 mill/uL (4.70-6.10); RED CELL DISTRI WIDTH 14.5 % (11.5-15.5)
[2022-07-18 16:21] LABS: ALBUMIN 3.1 g/dL (3.2-5.0); ALKALINE PHOSPHATASE 88 u/l (38-126); ANION GAP 14 (6-22 (CALC)); BILIRUBIN, TOTAL 0.8 mg/dL (0.0-1.4); BUN 18 mg/dL (9-20); BUN/CREATININE RATIO 15 (12-20 (CALC)); CARBON DIOXIDE 17 mmol/l (22-30); CHLORIDE 116 mmol/l (95-108); CREATININE 1.2 mg/dL (0.7-1.3); GFR FOR AFR.AMER. > 60 ML/MIN (>=60 (CALC)); GFR OTHER RACES > 60 ML/MIN (>=60 (CALC)); SGOT/AST 32 u/l (17-59); SODIUM 142 mmol/l (137-146); TOTAL PROTEIN 7.8 g/dL (6.3-8.2)
== END 2022-07-18 18:36 | DRG 812 ==
LOC: ED 15:22
PROVIDERS: Nurse Practitioner
DX: D64.9 Anemia, unspecified (principal); I10 Essential (primary) hypertension; E11.9 Type 2 diabetes mellitus without complications; Z79.84 Long term (current) use of oral hypoglycemic drugs; Z79.4 Long term (current) use of insulin

== ENCOUNTER 2024-10-27 22:33 | Inpatient (IN) | payer OTHER ==
[~2024-10-27] VITALS: Ht 175.3 cm; Wt 85.6 kg
[~2024-10-27 22:33] MED LIST changes: +ASPIRIN81 MG PO; +FINASTERIDE5 MG PO; +KEFLEX500 MG PO; +LEVOTHYROXIN50 MCG PO; +MUPIROCIN2 % TOP; +TAMSULOSIN HCL0.4 MG PO
[2024-10-27 22:45] VITALS: BP 150/67
[2024-10-27] MEDS ORDERED: VANCOMYCIN HCL 1 GM in SODIUM CHLORIDE 0.9% 250 ML IV STA (22:58)
[2024-10-27] MEDS ORDERED: cefTRIAXone SODIUM 2 GM in SODIUM CHLORIDE 0.9% 100 ML IV STA (22:58)
[2024-10-27 23:01] VITALS: BP 150/66
[2024-10-27] MEDS ORDERED: VANCOMYCIN HCL 1 GM/VIAL IV ONE (23:08)
[2024-10-27] MEDS ORDERED: DOXYCYCLINE HYCLATE 100 MG in SODIUM CHLORIDE 0.9% 100 ML IV ONE (23:10)
[2024-10-27 23:11] LABS: BASO% 0.3 % (0-3); EOS% 0.6 % (0-8); HEMATOCRIT 23.8 % (39.0-50.0); HEMOGLOBIN 8.3 g/dl (14.0-18.0); IMMATURE GRANULOCYTES 0.6 % (0.0-5.0); LYMPH% 3.2 % (15-41); MEAN CELL VOLUME 91.5 fL CALC (80.0-100.0); MEAN CORPUSCULAR HGB 31.9 pG CALC (26.0-32.0); MEAN CORPUSCULAR HGB CONC 34.9 g/dL CAL (32.0-36.0); MONO% 7.5 % (2-13); NEUT# 10.92 thou/uL (1.82-7.42); NEUT% 87.8 % (42-76); RED BLOOD COUNT 2.6 mill/uL (4.70-6.10); RED CELL DISTRI WIDTH 14.1 % (11.5-15.5)
[2024-10-27 23:20] LABS: CREATININE 1.5 mg/dL (0.7-1.3); POTASSIUM 4.1 mmol/l (3.5-5.1)
[2024-10-27 23:21] LABS: BILIRUBIN, TOTAL 1.5 mg/dL (0.2-1.3); TOTAL PROTEIN 6.9 g/dL (6.3-8.2)
[2024-10-27] MEDS ORDERED: NITROSTAT0.4 MG SL (23:21)
[2024-10-27] MEDS ORDERED: INSULIN GLAR100 UNIT SC (23:22)
[2024-10-27] MEDS ORDERED: HYDROCHLOROT25 MG PO (23:23)
[2024-10-27] MEDS ORDERED: FERROUS SULFAT325 MG PO ×2 (23:24→23:26)
[2024-10-27] MEDS ORDERED: CALCIUM ANTACI500 MG PO (23:27)
[2024-10-27] MEDS ORDERED: POTASSIUM CHLO20 ME1 PO (23:28)
[2024-10-27] MEDS ORDERED: VITAMIN D-32000 UNI1 PO (23:28)
[2024-10-27 23:31] VITALS: BP 163/68
[2024-10-27] MEDS ORDERED: AMLODIPINE BESYL5 MG PO (23:34)
[2024-10-27] MEDS ORDERED: NOVOLIN R100 UNIT/1 (23:36)
[2024-10-28] VITALS (13 sets, daily range): BP systolic 140–181; BP diastolic 62–75
[2024-10-28] MEDS ORDERED: SODIUM CHLORIDE 0.9% 1,000 ML IV ONE ×2 (00:25)
[2024-10-28] MEDS ORDERED: Iopamidol 370 (Isovue) 76% 100 ML SDV IV ONE ×2 (00:50)
[2024-10-28 00:59] LABS: URINE BILIRUBIN - DIPSTICK Negative (NEGATIVE); URINE BLOOD DIPSTICK Moderate (NEGATIVE); URINE COLOR Yellow; URINE GLUCOSE - DIPSTICK Negative (NEGATIVE); URINE KETONE Negative (NEGATIVE); URINE LEUK ESTERASE Negative (NEGATIVE); URINE NITRITE - DIPSTICK Negative (Negative); URINE PH 5.5 (4.5-8.0); URINE PROTEIN - DIPSTICK 100 mg/dL (NEG-TRACE)
[2024-10-28] MEDS ORDERED: SODIUM CHLORIDE 0.9% 1,000 ML IV PRN (05:05)
[2024-10-28] MEDS ORDERED: MAGNESIUM HYDROXIDE 30 ML UDC PO PRN (05:05)
[2024-10-28] MEDS ORDERED: ACETAMINOPHEN 325 MG/TAB PO PRN (05:05)
[2024-10-28 08:19] LABS: BASO% 0.3 % (0-3); EOS% 1.6 % (0-8); HEMATOCRIT 26.5 % (39.0-50.0); HEMOGLOBIN 9.2 g/dl (14.0-18.0); IMMATURE GRANULOCYTES 0.1 % (0.0-5.0); MEAN CELL VOLUME 91.4 fL CALC (80.0-100.0); MEAN CORPUSCULAR HGB 31.7 pG CALC (26.0-32.0); MEAN CORPUSCULAR HGB CONC 34.7 g/dL CAL (32.0-36.0); MONO% 7.4 % (2-13); NEUT# 6.2 thou/uL (1.82-7.42); NEUT% 83.6 % (42-76); RED BLOOD COUNT 2.9 mill/uL (4.70-6.10); RED CELL DISTRI WIDTH 14.1 % (11.5-15.5)
[2024-10-28] MEDS ORDERED: DEXTROSE 250 ML IV PRN (09:10)
[2024-10-28] MEDS ORDERED: amLODIPine BESYLATE 5 MG/TAB PO SCH (10:00)
[2024-10-28] MEDS ORDERED: POTASSIUM CHLORIDE 20 MEQ/TAB PO SCH (10:00)
[2024-10-28] MEDS ORDERED: FERROUS SULFATE 325 MG/TAB PO SCH (10:00)
[2024-10-28] MEDS ORDERED: hydroCHLOROthiazide 25 MG/TAB PO SCH (10:00)
[2024-10-28] MEDS ORDERED: LEVOTHYROXINE SODIUM 50 MCG/TAB PO SCH (10:00)
[2024-10-28] MEDS ORDERED: FUROSEMIDE 40 MG/TAB PO SCH (10:00)
[2024-10-28 10:57] LABS: ALBUMIN 2.4 g/dL (3.2-5.0); BILIRUBIN, TOTAL 1.4 mg/dL (0.2-1.3); CREATININE 1.3 mg/dL (0.7-1.3); MAGNESIUM 1.9 mg/dL (1.6-2.3); POTASSIUM 3.5 mmol/l (3.5-5.1)
[2024-10-28] MEDS ORDERED: INSULIN LISPRO 100 UNITS/ML ML SC SCH (11:00)
[2024-10-28] MEDS ORDERED: DOXYCYCLINE HYCLATE 100 MG in SODIUM CHLORIDE 0.9% 100 ML IV SCH (11:00)
[2024-10-28] MEDS ORDERED: ENOXAPARIN SODIUM 40 MG/0.4 ML SYR SC SCH (21:00)
[2024-10-29] VITALS (10 sets, daily range): BP systolic 142–154; BP diastolic 59–72
[2024-10-29 05:20] LABS: BASO% 0.6 % (0-3); EOS% 7.9 % (0-8); HEMATOCRIT 25.5 % (39.0-50.0); IMMATURE GRANULOCYTES 0.2 % (0.0-5.0); LYMPH% 16.1 % (15-41); MEAN CELL VOLUME 93.1 fL CALC (80.0-100.0); MEAN CORPUSCULAR HGB 32.8 pG CALC (26.0-32.0); MEAN CORPUSCULAR HGB CONC 35.3 g/dL CAL (32.0-36.0); NEUT# 3.43 thou/uL (1.82-7.42); NEUT% 63.2 % (42-76); RED BLOOD COUNT 2.74 mill/uL (4.70-6.10); RED CELL DISTRI WIDTH 13.9 % (11.5-15.5)
[2024-10-29 05:30] LABS: ALBUMIN 2.2 g/dL (3.2-5.0); CREATININE 1.3 mg/dL (0.7-1.3); MAGNESIUM 1.8 mg/dL (1.6-2.3); POTASSIUM 3.6 mmol/l (3.5-5.1); TOTAL PROTEIN 5.8 g/dL (6.3-8.2)
[2024-10-29 05:45] LABS: BILIRUBIN, TOTAL 0.7 mg/dL (0.2-1.3)
[2024-10-29] MEDS ORDERED: IBUPROFEN 600 MG/TAB PO PRN (12:15)
[2024-10-30 04:00] VITALS: BP 141/57
[2024-10-30 04:06] VITALS: BP 141/57
[2024-10-30 05:26] LABS: BASO% 0.7 % (0-3); EOS% 12.3 % (0-8); HEMATOCRIT 27.5 % (39.0-50.0); HEMOGLOBIN 9.4 g/dl (14.0-18.0); IMMATURE GRANULOCYTES 0.2 % (0.0-5.0); LYMPH% 19.7 % (15-41); MEAN CELL VOLUME 93.9 fL CALC (80.0-100.0); MEAN CORPUSCULAR HGB 32.1 pG CALC (26.0-32.0); MEAN CORPUSCULAR HGB CONC 34.2 g/dL CAL (32.0-36.0); MONO% 8.9 % (2-13); NEUT# 2.6 thou/uL (1.82-7.42); NEUT% 58.2 % (42-76); RED BLOOD COUNT 2.93 mill/uL (4.70-6.10)
[2024-10-30 05:40] LABS: ALBUMIN 2.3 g/dL (3.2-5.0); BILIRUBIN, TOTAL 0.9 mg/dL (0.2-1.3); CREATININE 1.3 mg/dL (0.7-1.3); MAGNESIUM 1.8 mg/dL (1.6-2.3); POTASSIUM 3.6 mmol/l (3.5-5.1); TOTAL PROTEIN 5.8 g/dL (6.3-8.2)
[2024-10-30 07:07] VITALS: BP 144/69
[2024-10-30 07:09] VITALS: BP 144/69
[2024-10-30 08:53] VITALS: BP 144/69
== END 2024-10-30 11:05 | DRG 872 ==
LOC: ED 22:33 → MS2 10-28 03:20
PROVIDERS: Emergency Medicine; Nurse Practitioner Family; ADMIT Internal Medicine; ATTEND Internal Medicine
DX: A41.9 Sepsis, unspecified organism (principal); N17.9 Acute kidney failure, unspecified; D61.818 Other pancytopenia; R65.20 Severe sepsis without septic shock; R07.89 Other chest pain; I10 Essential (primary) hypertension; E11.621 Type 2 diabetes mellitus with foot ulcer; L97.529 Non-pressure chronic ulcer of other part of left foot with unspecified severity; D50.9 Iron deficiency anemia, unspecified; E03.9 Hypothyroidism, unspecified; Z86.73 Personal history of transient ischemic attack (TIA), and cerebral infarction without residual deficits; Z79.4 Long term (current) use of insulin; Z20.822 Contact with and (suspected) exposure to COVID-19
CPT/HCPCS: J1815; Q9967